=== PATIENT | male | born 1985 | race Caucasian/White ===

== ENCOUNTER 2023-03-29 13:30 | Outpatient (AMB) | payer OTHER, SELFPAY ==
--- NOTE | 2023-03-29 13:31 | MHC.PC.OV ---
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 Allergies No Known Allergies Allergy (Verified 03/29/23 13:36) Medication List - Last Reconciled 03/29/23 by Tony Duarte MD No Known Home Meds Tobacco use date assessed: 03/29/23 Dental Screening Dental Screen Date: 03/29/23 Did you have a dental visit in the last 12 months?: Yes Did you have a dental problem in the last 6 months where you did not have access to dental care?: Yes Was dental information given to patient?: 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 Family history of diabetes and mother Requesting labs which I have ordered for him to be done fasting. Patient offer no other complaints. [facility] [place] Social History Housing: Apartment Patient Tobacco Use Status: Never used Tobacco e-Cigarette/Vaping Use: Never Used service: Yes Current occupational status: employed Cognitive needs: No Hearing needs: No Vision needs: No Questionnaire PHQ-9 Over the last 2 weeks, how often have you been bothered by any of the following problems? 1. Little interest or pleasure in doing things: not at all 2. Feeling down, depressed, or hopeless: not at all 3. Trouble falling or staying asleep, or sleeping too much: not at all 4. Feeling tired or having little energy: not at all 5. Poor appetite or overeating: not at all 6. Feeling bad about yourself - or that you are a failure or have let yourself or your family down: not at all 7. Trouble concentrating on things, such as reading the newspaper or watching television: not at all 8. Moving or speaking so slowly that other people could have noticed. Or the opposite - being so fidgety or restless that you have been moving around a lot more than usual: not at all 9. Thoughts that you would be better off or of hurting yourself in some way: not at all Total score: 0 Source: Developed by Drs. Fabio Rosenbaum, Teresa Braswell, Jm Clifford and colleagues, with an educational rohith from [employer]. Thrive Questionnaire Date Thrive assessed: 03/29/23 I am a: Patient What is your living situation today?: I have a steady place to live Within the past 12 months, did the food you bought not last and you didn't have the money to get more?: Never true Within the past 12 months, did you worry whether your food would run out before you got money to buy more?: Never true Do you have trouble paying for medicines?: No Do you have trouble getting transportation to medical appointments?: No Do you have trouble paying your heating and electricity bill?: No Do you have trouble taking care of your child, family member or friend?: No Do you have trouble with day-to-day activities such as bathing, preparing meals, shopping, managing finances, etc.?: No Are you currently unemployed and looking for a job?: No Are you interested in more education?: No AUDIT C Alcohol Use Questionnaire (AUDIT-C) 1. How often do you have a drink containing alcohol?: Never Total Score: 0 DHARA-7 AMB Questionnaire DHARA-7 Date DHARA - 7 assessed: 03/29/23 Feeling nervous, anxious, or on edge: 0 = Not at all Not being able to stop or control worryin = Not at all Worrying too much about different things: 0 = Not at all Trouble relaxin = Not at all Being so restless that it is hard to sit still: 0 = Not at all Becoming easily annoyed or irritable: 0 = Not at all Feeling afraid as if something awful might happen: 0 = Not at all Total DHARA-7 score (0-4 normal; 5-9 mild; 10-14 moderate; 15-21 severe): 0 Source: Developed by Drs. Fabio Rosenbaum, Jm Harris and colleagues, with an educational rohith from [employer]. Review of Systems Const Denies chills, Denies fever(s) and Denies headache(s) Eyes Denies blurry vision ENT Denies headache(s), Denies nasal discharge, Denies nasal obstruction, Denies odynophagia and Denies sinus pain Card Denies chest pain at rest and Denies chest pain with activity Resp Denies cough and Denies hemoptysis GI Denies diarrhea, Denies odynophagia, Denies vomiting and Denies hematemesis Reports as per HPI Musc Denies abnormal gait Skin/Breast Reports as per HPI Neuro Denies Neuro-related abnormal movements, Denies Abnormal speech present, Denies abnormal gait, Denies headache(s) and Denies Sensory deficit (Neuro) Psych Denies mood swings and Denies paranoia Endo Reports as per HPI Basil/Lymph Reports as per HPI Aller/Immun Reports as per HPI Physical exam (Primary Care) Vital Signs: Last Vital Signs Pulse 68 03/29/23 13:33 BP 120/70 03/29/23 13:33 Pulse Ox 98 03/29/23 13:33 Oxygen Delivery Method Room Air 03/29/23 13:33 BMI result Body Mass Index 29.2 Tobacco/Smoking Status: Tobacco use Status Tobacco use date assessed 03/29/23 03/29/23 13:37 Patient Tobacco Use Status Never used Tobacco 03/29/23 13:37 e-Cigarette/Vaping Use Never Used 03/29/23 13:37 PHQ-9: PHQ-9 Score PHQ-9: Total score 0 03/29/23 13:37 Thrive Assessment: Date of Thrive Assessment Date Thrive assessed 03/29/23 03/29/23 13:37 Const General: cooperative, comfortable and no acute distress Orientation/consciousness: patient oriented x3 HENMT Head: Yes normocephalic and Yes atraumatic Eyes General: appearance normal, both eyes and all related structures Pupils: Equal, round and reactive pupils present EOM: EOMs intact bilaterally Neck Neck: Yes supple and No lymphadenopathy Thyroid: Thyroid normal Lymphatic: no lymphadenopathy noted Resp Effort & Inspection: normal respiratory effort and able to speak in complete sentences Auscultation: clear to auscultation bilaterally Cardio Heart sounds: S1 normal heart sound present and S2 normal heart sound present GI Palpation (GI): Soft to palpation and nontender Auscultation: normal bowel sounds General: Yes no CVA tenderness Back/Spine/Pelvis Back: no CVA tenderness Skin General skin exam: elasticity normal and turgor normal Neuro General: patient oriented x3 and gait normal Cranial nerves: Yes Equal, round and reactive pupils present Speech: No Abnormal speech present Sensory Exam: No Sensory deficit (Neuro) Coordination: tandem gait normal and Romberg test negative Extrem General: Yes normal exam except as noted and No edema Assessment and Plan Assessment & Plan (1) Encounter for general adult medical examination with abnormal findings: Code(s): Z00.01 - Encounter for general adult medical examination with abnormal findings (2) Erectile dysfunction: Code(s): N52.9 - Male erectile dysfunction, unspecified (3) Family history of diabetes mellitus: Code(s): Z83.3 - Family history of diabetes mellitus Plan New patient physical exam and establish care Patient moved from it denies 6 month ago He says that he was seeing a urologist over there for a tell dysfunction, and would like to have a referral to see a urologist again. Family history of diabetes and mother Requesting labs which I have ordered for him to be done fasting. Patient offer no other complaints. Orders: Orders Comprehensive [place]. Panel Fast Today N52.9 - Male erectile dysfunction, unspecified, Z00.01 - Encounter for general adult medical examination with abnormal findings, Z83.3 - Family history of diabetes mellitus Lipid Panel Today N52.9 - Male erectile dysfunction, unspecified, Z00.01 - Encounter for general adult medical examination with abnormal findings, Z83.3 - Family history of diabetes mellitus Prostate Specific Antigen Today N52.9 - Male erectile dysfunction, unspecified, Z00.01 - Encounter for general adult medical examination with abnormal findings, Z83.3 - Family history of diabetes mellitus Complete Blood Count Auto Diff Today N52.9 - Male erectile dysfunction, unspecified, Z00.01 - Encounter for general adult medical examination with abnormal findings, Z83.3 - Family history of diabetes mellitus TSH reflex Free T4 Today N52.9 - Male erectile dysfunction, unspecified, Z00.01 - Encounter for general adult medical examination with abnormal findings, Z83.3 - Family history of diabetes mellitus Referrals Urology Referral N52.9 - Male erectile dysfunction, unspecified Coding Level of Care Code New Pt Prev Care 18-39yr(10626 Diagnoses Encounter for general adult medical examination with abnormal findings Z00.01 Erectile dysfunction N52.9 Family history of diabetes mellitus Z83.3
[2023-03-29 13:33] VITALS: BP 120/70; PULSE 68; O2SAT 98; BMI 29.2
== END 2023-03-29 13:47 | disposition home or self-care (01) ==
PROVIDERS: Visit Provider Internal Medicine
DX: Z00.01 Encounter for general adult medical examination with abnormal findings (principal); N52.9 Male erectile dysfunction, unspecified; Z83.3 Family history of diabetes mellitus
CPT/HCPCS: 99385

== ENCOUNTER 2023-04-06 06:32 | Outpatient (REF) | payer OTHER, SELFPAY ==
[2023-04-06 11:25] LABS: MANUAL DIFF FLAG NO
[2023-04-06 12:00] LABS: Basophils Absolute Auto 0.1 X10*3/uL (0.0-0.2); Eosinophils Absolute Auto 0.2 X10*3/uL (0.0-0.4); Eosinophils Percent Auto 2.1 % (0-4); Hematocrit 44.3 % (42.0-52.0); Hemoglobin 14.9 g/dl (14.0-18.0); Imm Gran Abs Auto 0.12 X10*3/uL (0.00-0.03); Imm Gran Pct Auto 1.6 % (0.0-0.4); Lymphocytes Absolute Auto 2.5 X10*3/uL (1.2-4.9); Lymphocytes Percent Auto 32.9 % (20-40); Mean Corpuscular HGB Conc 33.6 g/dl (31.0-36.0); Mean Corpuscular Volume 89.1 fL (80.0-98.0); Mean Platelet Volume 9.4 fL (9.4-12.4); Monocytes Absolute Auto 0.5 X10*3/uL (0.1-1.2); Monocytes Percent Auto 6.7 % (2-11); Neutrophils Absolute Auto 4.3 x10*3/uL (2.0-8.3); Neutrophils Percent Auto 55.7 % (45-73); Platelet Count 314 X10*3/uL (160-400); Red Blood Count 4.97 X10*6/uL (4.60-5.80); Red Cell Distribution Width 11.9 % (11.0-16.0); White Blood Count 7.7 X10*3/uL (4.8-10.8)
[2023-04-06 12:30] LABS: Alanine Aminotransferase 50 U/L (0-40); Albumin Level 4.5 g/dL (3.5-5.0); Alkaline Phosphatase 60 U/L (39-117); Anion Gap 13 (12-20); Aspartate Amino Transferase 27 U/L (5-37); Bilirubin Total 0.9 mg/dL (0.0-1.0); Blood Urea Nitrogen 16 mg/dL (9-16); Calcium 9.7 mg/dL (8.4-10.2); Carbon Dioxide 27 mmol/L (22-29); Chloride 106 mmol/L (96-108); Cholesterol 208 mg/dL; Estimated Glomerular Filt Rate > 60; Glucose Fasting 98 mg/dL (60-99); HDL Cholesterol 43 mg/dL; LDL Cholesterol Calculated 136 mg/dl; Potassium 4.7 mmol/L (3.3-5.1); Sodium 141 mmol/L (135-145); Total Protein 7.2 g/dL (6.5-8.0); Triglycerides 147 mg/dL
[2023-04-06 12:52] LABS: Prostate Specific Antigen 0.75 ng/mL (<0.05-4.0)
== END 2023-04-06 06:33 | disposition home or self-care (01) ==
LOC: HO.HMGCLDS 06:32
PROVIDERS: PCP Internal Medicine; Visit Provider Internal Medicine
DX: Z00.01 Encounter for general adult medical examination with abnormal findings (principal); Z12.5 Encounter for screening for malignant neoplasm of prostate; N52.9 Male erectile dysfunction, unspecified; Z83.3 Family history of diabetes mellitus
CPT/HCPCS: 36415; 80053; 80061; 84153; 84443; 85025

== ENCOUNTER 2023-05-24 14:51 | Outpatient (AMB) | payer OTHER, SELFPAY ==
--- NOTE | 2023-05-24 14:52 | A.OFFVIS_ITS ---
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 Duarte. He presents to the office today as a new patient for erectile dysfunction. When asked he reports to be doing and feeling well. He reports over the last 3 or so years noting himself to have issues with maintaining his erections. 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 He reports previously having a workup with imaging of his penis and being told everything was within normal limits. He denies any issues with his urination. He reports to be happy with current voiding parameters. He reports utilizing Viagra 100 mg on demand and reports this to be working somewhat well for him and is requesting a refill. In office urinalysis results reviewed with the patient today. He otherwise offers no other issues or concerns at this time. [facility] Social History Housing: Apartment Patient Tobacco Use Status: Never used Tobacco e-Cigarette/Vaping Use: Never Used service: Yes Current occupational status: employed Cognitive needs: No Hearing needs: No Vision needs: No Review of Systems Const All systems reviewed & are unremarkable except as noted in HPI and below Physical Exam Const General: cooperative, healthy appearing, comfortable, no acute distress, well developed, alert and awake Orientation/consciousness: patient oriented x3 Limitations: no limitations HEENT Head: Yes normal to inspection, Yes normocephalic and Yes atraumatic Ears: hearing grossly normal bilaterally Eyes General: appearance normal, both eyes and all related structures Neck Neck: Yes normal visual inspection and Yes trachea midline Chest Chest palpation & inspection: normal inspection of the chest Resp Effort & Inspection: normal respiratory effort and able to speak in complete sentences Cardio Rate: regular rate GI Inspection: Yes normal to inspection General: Yes no CVA tenderness Back/Spine/Pelvis Back: no CVA tenderness Skin General skin exam: no rashes or lesions noted Neuro General: patient oriented x3 Extrem General: Yes normal to inspection Psych Appearance: grossly normal and well kempt Mental Status: mental status grossly normal Speech and movement: Normal speech and movement present and Clear speech present Affect: normal affect Attitude: cooperative Thought process: Normal thought process present Thought content: Normal thought content present Insight: Good insight present (Psych) Judgement: Good judgement present (Psych) Results AMB Urinalysis, Automated UA Leukoctes 0 Sai/uL Last Edit by [employer] on 05/24/23 15:12 UA Nitrite Negative Last Edit by [employer] on 05/24/23 15:12 UA Urobilinogen 0.2 mg/dL Last Edit by [employer] on 05/24/23 15:12 UA Protein 0 mg/dL Last Edit by [employer] on 05/24/23 15:12 UA pH 7.0 Last Edit by [employer] on 05/24/23 15:12 UA Blood 0 [place]/uL Last Edit by [employer] on 05/24/23 15:12 UA Specific [place] 1.015 Last Edit by [employer] on 05/24/23 15:12 UA Ketone Negative Last Edit by [employer] on 05/24/23 15:12 UA Bilirubin 0 mg/dL Last Edit by [employer] on 05/24/23 15:12 UA Glucose 0 mg/dL Last Edit by [employer] on 05/24/23 15:12 Results Reviewed Results Reviewed: Laboratory Last Values Urine pH (Auto) 7.0 05/24/23 15:01 Specific [place] (Auto) 1.015 05/24/23 15:01 Urine Protein (Auto) 0 mg/dL 05/24/23 15:01 Glucose (UA)(Auto) 0 mg/dL 05/24/23 15:01 Urine Ketones (Auto) Negative 05/24/23 15:01 Urine Blood (Auto) 0 [place]/uL 05/24/23 15:01 Urine Nitrite (Auto) Negative 05/24/23 15:01 Urine Bilirubin (Auto) 0 mg/dL 05/24/23 15:01 Urine Urobilinogen (Auto) 0.2 mg/dL 05/24/23 15:01 Leukocyte Esterase (Auto) 0 Sai/uL 05/24/23 15:01 Assessment & Plan Assessment & Plan (1) Erectile dysfunction: Code(s): N52.9 - Male erectile dysfunction, unspecified Plan In office urinalysis results reviewed with the patient today. Discussed obtaining labs; FSH, testosterone, albumin, SHBG, estradiol, LH, and prolactin for further assessment and evaluation He denies any bothersome urinary issues at this time. He is happy with his current voiding parameters. Discussed lifestyle modifications to assist with ED. Refill provided on Viagra Follow-up in 1 month with labs to be completed prior; or sooner with any issues, concerns, and or questions. Orders: Orders AMB Urinalysis Automated Today Z13.9 - Encounter for screening, unspecified Follicle Stimulating Hormone Today N52.9 - Male erectile dysfunction, u nspecified Testosterone, Free/Total Today N52.9 - Male erectile dysfunction, unspecified Albumin Level Today N52.9 - Male erectile dysfunction, unspecified Sex Hormone Binding Globulin Today N52.9 - Male erectile dysfunction, unspecified Estradiol Ultra Sensitive Today N52.9 - Male erectile dysfunction, unspecified Lutenizing Hormone Today N52.9 - Male erectile dysfunction, unspecified Prolactin Today N52.9 - Male erectile dysfunction, unspecified Medications: New sildenafil (Viagra) BIN [id number] [facility] Group [id number] 100 mg PO DAILY 30 days 30 tabs 4RF Patient Instructions: The patient had an opportunity to ask questions regarding the treatment plan. All questions were answered. Physical exam, labs, and imaging were discussed and reviewed in detail. As well as risks, benefits, and discussion of treatment choices. No major barriers to understanding were identified. The patient expressed understanding and agreement with the above treatment plan. The patient was made aware they should contact our office by phone for worsening of their current condition, the appearance of new symptoms, or with any questions or concerns. Compliance is encouraged with any medications and follow up testing that is ordered. It is a privilege to be allowed the opportunity to participate in? your urological care.? Again, if you have any questions or concerns If you have any questions or concerns please do not hesitate to contact me. The office is [phone]. This note is constructed using voice recognition software. While every effort has been made to ensure accuracy church history teacher errors may have been included. Yours sincerely, YESI Estrada Coding Level of Care Code New Pt Level 3 (86019) Diagnoses Erectile dysfunction N52.9
== END 2023-05-24 15:48 | disposition home or self-care (01) ==
PROVIDERS: PCP Internal Medicine; Visit Provider Nurse Practitioner Family
DX: N52.9 Male erectile dysfunction, unspecified (principal); Z13.9 Encounter for screening, unspecified
CPT/HCPCS: 99203

== ENCOUNTER → 2023-05-24 14:51 | Outpatient (BNVA) | payer OTHER, SELFPAY | PROVIDERS: PCP Internal Medicine; Visit Provider Nurse Practitioner Family | DX: N52.9 Male erectile dysfunction, unspecified (principal) | CPT/HCPCS: 81003 ==

== ENCOUNTER 2023-08-11 09:32 | Outpatient (REF) | payer OTHER, SELFPAY ==
[2023-08-11 12:11] LABS: Alanine Aminotransferase 33 U/L (0-40); Albumin Level 4.7 g/dL (3.5-5.0); Alkaline Phosphatase 58 U/L (39-117); Aspartate Amino Transferase 22 U/L (5-37); Bilirubin Direct 0.3 mg/dL (0.0-0.5); Bilirubin Total 0.9 mg/dL (0.0-1.0); Total Protein 7.6 g/dL (6.5-8.0)
[2023-08-12 14:28] LABS: Sex Hormone Binding Globulin 15 nmol/L (10-50)
[2023-08-13 07:09] LABS: Follicle Stimulating Hormone 4.1 mIU/mL (1.4-12.8); Lutenizing Hormone 5.1 mIU/mL (1.5-9.3); Prolactin 5.1 ng/mL (2.0-18.0)
[2023-08-16 16:14] LABS: Testosterone, Free 105.6 pg/mL (35.0-155.0); Testosterone, Total 440 ng/dL (250-1100)
[2023-08-17 21:09] LABS: Estradiol Ultra Sensitive 27 pg/mL (< OR = 29)
== END 2023-08-11 09:33 | disposition home or self-care (01) ==
LOC: HO.HMGCLDS 09:32
PROVIDERS: Absent Provider Nurse Practitioner Family; PCP Internal Medicine; Visit Provider Internal Medicine
DX: R79.89 Other specified abnormal findings of blood chemistry (principal); N52.9 Male erectile dysfunction, unspecified
CPT/HCPCS: 36415; 80076; 82670; 83001; 83002; 84146; 84270; 84402; 84403

== ENCOUNTER 2023-09-01 13:29 | Outpatient (AMB) | payer OTHER, SELFPAY ==
--- NOTE | 2023-09-01 14:00 | MHC.OFFVIS ---
Intake Intake Visit Reasons: Follow-up Labs Results Intake Note: Patient presents for follow up visit erectile dysfunction/labs (testosterone 440) (free testosterone 105.6) Urology Medications: sildenafil Blood Thinner: none Diabetic: no Systems Architect Required: No Accompanied by: Self / Same As Patient Allergies No Known Allergies Allergy (Verified 09/03/23 17:34) Medication List - Last Reconciled 09/03/23 by TESSA Estrada-ANA MARÍA sildenafil (Viagra) 100 mg PO DAILY 30 days tadalafil (Cialis) 5 mg PO DAILY 90 days HPI HPI Comments History of Present Illness Details Clifford is a very pleasant 37-year-old male patient of Dr. Duarte. He presents to the office today for follow-up of his erectile dysfunction. Of note, patient was seen approximately 3 months ago at which time labs were ordered for further assessment evaluation of erectile dysfunction. These results were reviewed with the patient today. Estradiol 08/19--27 FSH 08/19--4.1 LH 08/19--5.1 Prolactin 08/19--5.1 Total testosterone 08/19--440 Free testosterone 08/19--105.6 SHBG 08/19-- 15 PSA 08/19--0.8 When asked he reports to be doing and feeling well. He does report sexual desire and is able to obtain erections however maintaining erections can be difficult at times. He reports utilizing as needed Viagra as prescribed and finds this helpful. 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 He reports previously having a workup with imaging of his penis and being told everything was within normal limits. When asked he denies any signs and symptoms of sleep apnea. He denies any issues with his urination. He reports to be happy with current voiding parameters. In office urinalysis results reviewed with the patient today. He otherwise offers no other issues or concerns at this time. [facility] Social History Housing: Apartment Patient Tobacco Use Status: Never used Tobacco e-Cigarette/Vaping Use: Never Used service: Yes Current occupational status: employed Cognitive needs: No Hearing needs: No Vision needs: No Review of Systems Const All systems reviewed & are unremarkable except as noted in HPI and below Physical Exam Const General: cooperative, healthy appearing, comfortable, no acute distress, well developed, alert and awake Orientation/consciousness: patient oriented x3 Limitations: no limitations HEENT Head: Yes normal to inspection, Yes normocephalic and Yes atraumatic Ears: hearing grossly normal bilaterally Eyes General: appearance normal, both eyes and all related structures Neck Neck: Yes normal visual inspection and Yes trachea midline Chest Chest palpation & inspection: normal inspection of the chest Resp Effort & Inspection: normal respiratory effort and able to speak in complete sentences Cardio Rate: regular rate GI Inspection: Yes normal to inspection General: Yes no CVA tenderness Back/Spine/Pelvis Back: no CVA tenderness Skin General skin exam: no rashes or lesions noted Neuro General: patient oriented x3 Extrem General: Yes normal to inspection Psych Appearance: grossly normal and well kempt Mental Status: mental status grossly normal Speech and movement: Normal speech and movement present and Clear speech present Affect: normal affect Attitude: cooperative Thought process: Normal thought process present Thought content: Normal thought content present Insight: Good insight present (Psych) Judgement: Good judgement present (Psych) Results AMB Urinalysis, Automated UA Leukoctes 0 Sai/uL Last Edit by [employer] on 09/01/23 14:10 UA Nitrite Negative Last Edit by [employer] on 09/01/23 14:10 UA Urobilinogen 0.2 mg/dL Last Edit by [employer] on 09/01/23 14:10 UA Protein 0 mg/dL Last Edit by [employer] on 09/01/23 14:10 UA pH 6.0 Last Edit by [employer] on 09/01/23 14:10 UA Blood 0 [place]/uL Last Edit by [employer] on 09/01/23 14:10 UA Specific [place] 1.025 Last Edit by [employer] on 09/01/23 14:10 UA Ketone Negative Last Edit by [employer] on 09/01/23 14:10 UA Bilirubin 0 mg/dL Last Edit by [employer] on 09/01/23 14:10 UA Glucose 0 mg/dL Last Edit by [employer] on 09/01/23 14:10 Results Reviewed Results Reviewed: Laboratory Last Values Urine pH (Auto) 6.0 09/01/23 14:09 Specific [place] (Auto) 1.025 09/01/23 14:09 Urine Protein (Auto) 0 mg/dL 09/01/23 14:09 Glucose (UA)(Auto) 0 mg/dL 09/01/23 14:09 Urine Ketones (Auto) Negative 09/01/23 14:09 Urine Blood (Auto) 0 [place]/uL 09/01/23 14:09 Urine Nitrite (Auto) Negative 09/01/23 14:09 Urine Bilirubin (Auto) 0 mg/dL 09/01/23 14:09 Urine Urobilinogen (Auto) 0.2 mg/dL 09/01/23 14:09 Leukocyte Esterase (Auto) 0 Sai/uL 09/01/23 14:09 Assessment & Plan Assessment & Plan (1) Erectile dysfunction: Code(s): N52.9 - Male erectile dysfunction, unspecified Plan In office urinalysis results reviewed with the patient today. Recent labs reviewed with the patient today; as noted above. He denies any bothersome urinary issues at this time. He is happy with his current voiding parameters. Discussed at length lifestyle modifications to assist with ED. Start Cialis 5 mg daily as discussed Continue as needed Viagra as prescribed Follow-up in 3 months; or sooner with any issues, concerns, and or questions. Orders: Orders AMB Urinalysis Automated 09/01/23 Z13.9 - Encounter for screening, unspecified Medications: New tadalafil (Cialis) [id number] [facility] [id number] Member [id number] 5 mg PO DAILY 90 days 90 tabs 1RF Refilled sildenafil (Viagra) BIN [id number] [facility] Group [id number] 100 mg PO DAILY 30 days 30 tabs 4RF Patient Instructions: The patient had an opportunity to ask questions regarding the treatment plan. All questions were answered. Physical exam, labs, and imaging were discussed and reviewed in detail. As well as risks, benefits, and discussion of treatment choices. No major barriers to understanding were identified. The patient expressed understanding and agreement with the above treatment plan. The patient was made aware they should contact our office by phone for worsening of their current condition, the appearance of new symptoms, or with any questions or concerns. Compliance is encouraged with any medications and follow up testing that is ordered. It is a privilege to be allowed the opportunity to participate in? your urological care.? Again, if you have any questions or concerns If you have any questions or concerns please do not hesitate to contact me. The office is [phone]. This note is constructed using voice recognition software. While every effort has been made to ensure accuracy master fire control technician errors may have been included. Yours sincerely, YESI Estrada Coding Level of Care Code Est Pt Level 4 (05489) Diagnoses Erectile dysfunction N52.9
== END 2023-09-01 14:48 | disposition home or self-care (01) ==
PROVIDERS: PCP Internal Medicine; Visit Provider Nurse Practitioner Family
DX: N52.9 Male erectile dysfunction, unspecified (principal)
CPT/HCPCS: 99214

== ENCOUNTER → 2023-09-01 13:29 | Outpatient (BNVA) | payer OTHER, SELFPAY | PROVIDERS: PCP Internal Medicine; Visit Provider Nurse Practitioner Family | DX: N52.9 Male erectile dysfunction, unspecified (principal) | CPT/HCPCS: 81003; 99212 ==

== ENCOUNTER 2023-10-31 10:38 | Outpatient (AMB) | payer OTHER, SELFPAY ==
--- NOTE | 2023-10-31 11:49 | MHC.OFFWIV ---
Intake Vital Signs 10/31/23 11:54 Height 6 ft Weight 223 lb BMI 30.2 BP 120/80 Blood Pressure Location Lt brachial Position Sitting Pulse 61 Pulse Source Pulse Oximeter Temp 97.3 F Temp Source Temporal Artery Scan Pulse Oximetry (%) 96 Intake Visit Reasons: EP sinus pain congestion masked in lobby Intake Note: pt is here today for sinus pain congestion started Patient Tobacco Use Status: Never used Tobacco Allergies No Known Allergies Allergy (Verified 10/31/23 12:34) Medication List - Last Reconciled 10/31/23 by TESSA Dowling sildenafil (Viagra) 100 mg PO DAILY 30 days tadalafil (Cialis) 5 mg PO DAILY 90 days Do you need a note to return to daycare/school/sports/work: Yes HPI HPI Comments History of Present Illness Details Patient is a 38-year-old male in for sick visit. He is an active member of the . He has no significant past medical history. States that for the past couple of days he has developed symptoms of sore throat, headache, cough. Patient states that he took Mucinex in the morning with good effect. Denies shortness of breath, chest pain, numbness, nausea, vomiting, diarrhea. [facility] Social History Housing: Apartment Patient Tobacco Use Status: Never used Tobacco e-Cigarette/Vaping Use: Never Used service: Yes Current occupational status: employed Cognitive needs: No Hearing needs: No Vision needs: No Review of Systems Const Details: Constitutional : No Weight loss, No Fever, No Chills, No Fatigue, No Malaise ENT/Mouth : Admits sore throat, Admits nasal congestion. Eyes: No Eye Pain, No Swelling, No Redness Cardiovascular : No Chest Pain, No SOB, No Dyspnea on Exertion, No Orthopnea, No Edema, No Palpitations Respiratory : Admits Cough, No Sputum, No Wheezing Gastrointestinal : No Nausea, No Vomiting, No Diarrhea, No Constipation, No abdominal Pain, No Hematochezia, No Melena Genitourinary : No Dysuria, No Urinary Frequency, No Hematuria, Musculoskeletal : No joint pain, No Myalgias, No Joint Swelling Skin : No Skin Lesions, No rash Neuro : No Weakness, No Numbness, No Dizziness, No Headache Psych : No Anxiety/Panic, No Depression Heme/Lymph: No Bruising, No Bleeding,No Lymphadenopathy Endocrine : No Polyuria, No Polydipsia All other systems reviewed and are negative Physical Exam Vital Signs: Last Vital Signs Temp 97.3 F 10/31/23 11:54 Pulse 61 10/31/23 11:54 BP 120/80 10/31/23 11:54 Pulse Ox 96 10/31/23 11:54 BMI result Body Mass Index 30.2 Vital signs reviewed stable Const Other: Appearance: Alert.? Oriented X3.? No acute distress.? Head: Normocephalic, atraumatic. Eyes: Pupils equal, round and reactive to light.? ENT: Pharynx cobblestoned,+ post nasal drip. TM intact and pearly honeycutt. Neck: Normal inspection.? Neck supple.? CVS: Normal heart rate and rhythm.? Pulses normal.? Respiratory: No respiratory distress.? Breath sounds normal.? Neuro: Oriented X 3.? No motor deficit.? No sensory deficit. CN 2-12 intact Assessment & Plan Assessment & Plan (1) Upper respiratory infection: Comment: Patient had swab in office. Likely viral respiratory illness. Patient states he got relief with Mucinex, been educated that he continue to take that as directed on the bottle. He can also use [id number] Tylenol and Motrin for relief. Patient will be given fluticasone for postnasal drip which is likely exacerbating his sore throat. Code(s): J06.9 - Acute upper respiratory infection, unspecified Qualifiers: URI type: unspecified URI Qualified Code(s): J06.9 - Acute upper respiratory infection, unspecified Plan: Take your medications as prescribed. If you were prescribed antibiotics today, it is important that you take your medication to their entirety, do not skip any doses, do not finish them early. Follow-up with your primary care provider this week. Return to the emergency department with new or worsening symptoms. Such as fevers, chills, chest pain, shortness of breath, nausea, vomiting, dizziness, headache, vision changes, lethargy In case of emergency call 911 Plan Follow-up with PCP. Orders: Orders SARS-CoV2/FLU/RSV 10/31/23 J06.9 - Acute upper respiratory infection, unspecified Medications: New fluticasone propionate 50 mcg/actuation (Allergy Relief (fluticasone)) administer into each nostril 2 sprays intranasal DAILY 16 grams 0RF Coding Level of Care Code Est Pt Level 3 (46451) Diagnoses Upper respiratory tract infection, unspecified type J06.9 URI type: unspecified URI
[2023-10-31 11:54] VITALS: BP 120/80; PULSE 61; TEMP 36.3; O2SAT 96; BMI 30.2
== END 2023-10-31 13:46 | disposition home or self-care (01) ==
PROVIDERS: PCP Internal Medicine; Visit Provider Nurse Practitioner Primary Care
DX: J06.9 Acute upper respiratory infection, unspecified (principal)
CPT/HCPCS: 99213

== ENCOUNTER 2023-10-31 14:03 | Outpatient (REF) | payer OTHER, SELFPAY ==
[2023-10-31 15:10] LABS: Influenza A PCR NEGATIVE (Negative); Influenza B PCR NEGATIVE (Negative); Resp Syncy Virus RNA Qual PCR NEGATIVE (Negative); SARS COV2 PCR INHOUSE NEGATIVE (Negative)
== END 2023-10-31 14:04 | disposition home or self-care (01) ==
LOC: HO.HMGCLNP 14:03
PROVIDERS: Visit Provider Nurse Practitioner Primary Care
DX: Z11.52 Encounter for screening for COVID-19 (principal); Z20.822 Contact with and (suspected) exposure to COVID-19; J06.9 Acute upper respiratory infection, unspecified
CPT/HCPCS: 0241U

== ENCOUNTER 2023-12-01 13:53 | Outpatient (AMB) | payer OTHER, SELFPAY ==
--- NOTE | 2023-12-01 13:58 | MHC.OFFVIS ---
Intake Intake Visit Reasons: 3m follow up Intake Note: Patient presents for follow up visit erectile dysfunction Urology Medications: sildenafil, tadalafil Blood Thinner: none Diabetic: no Chief Science Officer Required: No Accompanied by: Self / Same As Patient Allergies No Known Allergies Allergy (Verified 12/01/23 14:28) Medication List - Last Reconciled 12/01/23 by JANNETTE EstradaP- fluticasone propionate 50 mcg/actuation (Allergy Relief (fluticasone)) 2 sprays intranasal DAILY sildenafil (Viagra) 100 mg PO DAILY 30 days tadalafil (Cialis) 5 mg PO DAILY 90 days HPI HPI Comments History of Present Illness Details Clifford is a very pleasant 38 year-old male patient of Dr. Durate. He presents to the office today for follow-up of his erectile dysfunction. When asked patient reports to be doing and feeling well. He reports adequate erections with 5 mg of Cialis daily in p.r.n. dosing of Viagra as needed prior to sexual activity. He currently denies any bothersome urinary issues or concerns. Previous workup has included hypogonadal labs which are noted and trended below: Estradiol 08/19--27 FSH 08/19--4.1 LH 08/19--5.1 Prolactin 08/19--5.1 Total testosterone 08/19--440 Free testosterone 08/19--105.6 SHBG 08/19-- 15 PSA 08/19--0.8 He has a history of penile Doppler workup with previous urologist and being told everything was within normal. When asked he denies any signs and symptoms of sleep apnea. He reports to be happy with current voiding parameters. In office urinalysis results reviewed with the patient today. He otherwise offers no other issues or concerns at this time. [facility] Social History Housing: Apartment Patient Tobacco Use Status: Never used Tobacco e-Cigarette/Vaping Use: Never Used service: Yes Current occupational status: employed Cognitive needs: No Hearing needs: No Vision needs: No Review of Systems Const All systems reviewed & are unremarkable except as noted in HPI and below Physical Exam Const General: cooperative, healthy appearing, comfortable, no acute distress, well developed, alert and awake Orientation/consciousness: patient oriented x3 Limitations: no limitations HEENT Head: Yes normal to inspection, Yes normocephalic and Yes atraumatic Ears: hearing grossly normal bilaterally Eyes General: appearance normal, both eyes and all related structures Neck Neck: Yes normal visual inspection and Yes trachea midline Chest Chest palpation & inspection: normal inspection of the chest Resp Effort & Inspection: normal respiratory effort and able to speak in complete sentences Cardio Rate: regular rate GI Inspection: Yes normal to inspection General: Yes no CVA tenderness Back/Spine/Pelvis Back: no CVA tenderness Skin General skin exam: no rashes or lesions noted Neuro General: patient oriented x3 Extrem General: Yes normal to inspection Psych Appearance: grossly normal and well kempt Mental Status: mental status grossly normal Speech and movement: Normal speech and movement present and Clear speech present Affect: normal affect Attitude: cooperative Thought process: Normal thought process present Thought content: Normal thought content present Insight: Good insight present (Psych) Judgement: Good judgement present (Psych) Results AMB Urinalysis, Automated UA Leukoctes 0 Sai/uL Last Edit by Likeability on 12/01/23 14:13 UA Nitrite Negative Last Edit by Likeability on 12/01/23 14:13 UA Urobilinogen 0.2 mg/dL Last Edit by Likeability on 12/01/23 14:13 UA Protein 15 mg/dL Last Edit by Likeability on 12/01/23 14:13 UA pH 5.5 Last Edit by Likeability on 12/01/23 14:13 UA Blood 0 [place]/uL Last Edit by Likeability on 12/01/23 14:13 UA Specific [place] 1.025 Last Edit by Likeability on 12/01/23 14:13 UA Ketone Negative Last Edit by Likeability on 12/01/23 14:13 UA Bilirubin 0 mg/dL Last Edit by Likeability on 12/01/23 14:13 UA Glucose 0 mg/dL Last Edit by Likeability on 12/01/23 14:13 Results Reviewed Results Reviewed: Laboratory Last Values Urine pH (Auto) 5.5 12/01/23 14:11 Specific [place] (Auto) 1.025 12/01/23 14:11 Urine Protein (Auto) 15 mg/dL 12/01/23 14:11 Glucose (UA)(Auto) 0 mg/dL 12/01/23 14:11 Urine Ketones (Auto) Negative 12/01/23 14:11 Urine Blood (Auto) 0 [place]/uL 12/01/23 14:11 Urine Nitrite (Auto) Negative 12/01/23 14:11 Urine Bilirubin (Auto) 0 mg/dL 12/01/23 14:11 Urine Urobilinogen (Auto) 0.2 mg/dL 12/01/23 14:11 Leukocyte Esterase (Auto) 0 Sai/uL 12/01/23 14:11 Assessment & Plan Assessment & Plan (1) Erectile dysfunction: Code(s): N52.9 - Male erectile dysfunction, unspecified Plan In office urinalysis results reviewed with the patient today. He denies any bothersome urinary issues at this time. He is happy with his current voiding parameters. Discussed at length lifestyle modifications to assist with ED. Continue 5mg Cialis daily; refill provided Continue as needed Viagra as prescribed; refill provided. Follow-up in 6 months; or sooner with any issues, concerns, and or questions. Orders: Orders AMB Urinalysis Automated Today Z13.9 - Encounter for screening, unspecified Medications: Refilled sildenafil (Viagra) BIN [id number] [facility] Group [id number] 100 mg PO DAILY 30 tabs 4RF 30 days tadalafil (Cialis) [id number] [facility] [id number] Member [id number] 5 mg PO DAILY 90 tabs 3RF 90 days Patient Instructions: The patient had an opportunity to ask questions regarding the treatment plan. All questions were answered. Physical exam, labs, and imaging were discussed and reviewed in detail. As well as risks, benefits, and discussion of treatment choices. No major barriers to understanding were identified. The patient expressed understanding and agreement with the above treatment plan. The patient was made aware they should contact our office by phone for worsening of their current condition, the appearance of new symptoms, or with any questions or concerns. Compliance is encouraged with any medications and follow up testing that is ordered. It is a privilege to be allowed the opportunity to participate in? your urological care.? Again, if you have any questions or concerns If you have any questions or concerns please do not hesitate to contact me. The office is [phone]. This note is constructed using voice recognition software. While every effort has been made to ensure accuracy registered diet technician errors may have been included. Yours sincerely, YESI Estrada Coding Level of Care Code Est Pt Level 3 (13798) Diagnoses Erectile dysfunction N52.9
== END 2023-12-01 14:19 | disposition home or self-care (01) ==
PROVIDERS: PCP Internal Medicine; Referring Provider Internal Medicine; Visit Provider Nurse Practitioner Family
DX: N52.9 Male erectile dysfunction, unspecified (principal); Z13.9 Encounter for screening, unspecified
CPT/HCPCS: 99213

== ENCOUNTER → 2023-12-01 13:53 | Outpatient (BNVA) | payer OTHER, SELFPAY | PROVIDERS: PCP Internal Medicine; Visit Provider Nurse Practitioner Family | DX: N52.9 Male erectile dysfunction, unspecified (principal); Z79.899 Other long term (current) drug therapy | CPT/HCPCS: 81003; 99212 ==

== ENCOUNTER 2024-03-06 13:01 | Outpatient (AMB) | payer OTHER, SELFPAY ==
--- NOTE | 2024-03-06 13:08 | A.OFFPC_ITS ---
Vital Signs 3 03/06/24 13:11 Height 6 ft Weight 212 lb 4 oz BMI 28.8 BP 124/80 Blood Pressure Location Rt brachial Position Sitting Pulse 75 Pulse Oximetry (%) 98 Oxygen Delivery Method Room Air Intake Visit Reasons: Rash RT leg Allergies No Known Allergies Allergy (Verified 03/06/24 13:13) Medication List - Last Reconciled 03/06/24 by Tony Duarte MD sildenafil (Viagra) 100 mg PO DAILY 30 days tadalafil (Cialis) 5 mg PO DAILY 90 days Tobacco use date assessed: 03/06/24 Dental Screening Dental Screen Date: 03/06/24 Did you have a dental visit in the last 12 months?: Yes Did you have a dental problem in the last 6 months where you did not have access to dental care?: No Was dental information given to patient?: Patient has dentist HPI Rash RT leg 2 HPI0 Details Patient is a 38-year-old gentleman came today to be evaluated for rash in the groin area for the past 1 month Patient says that the rash is pruritic at times and it has not getting better On examination patient has developed tinea corporis Treating the rash with Lotrisone cream He has appointment for physical exam next month we will re-evaluate the rash at that time. [facility] Social History Housing: Apartment Patient Tobacco Use Status: Never used Tobacco e-Cigarette/Vaping Use: Never Used service: Yes Current occupational status: employed Cognitive needs: No Hearing needs: No Vision needs: No Questionnaire Thrive Questionnaire Date Thrive assessed: 03/29/23 AUDIT C Alcohol Use Questionnaire (AUDIT-C) 1. How often do you have a drink containing alcohol?: Never 3. How often do you have six or more drinks on one occasion?: Never Total Score: 0 Score Reviewed/Action Taken: Yes DHARA-7 AMB Questionnaire DHARA-7 Date DHARA - 7 assessed: 03/29/23 Source: Developed by Drs. Fabio Rosenbaum, Teresa Braswell, Jm Clifford and colleagues, with an educational rohith from [employer]. Review of Systems Const All systems reviewed & are unremarkable except as noted in HPI and below Physical exam (Primary Care) Vital Signs: Last Vital Signs Pulse 75 03/06/24 13:11 BP 124/80 03/06/24 13:11 Pulse Ox 98 03/06/24 13:11 Oxygen Delivery Method Room Air 03/06/24 13:11 BMI result Body Mass Index 28.8 Tobacco/Smoking Status: Tobacco use Status Tobacco use date assessed 03/06/24 03/06/24 13:14 Patient Tobacco Use Status Never used Tobacco 03/06/24 13:08 e-Cigarette/Vaping Use Never Used 03/06/24 13:08 Thrive Assessment: Date of Thrive Assessment Date Thrive assessed 03/29/23 03/06/24 13:08 Const General: no acute distress Orientation/consciousness: patient oriented x3 Eyes General: appearance normal, both eyes and all related structures Resp Effort & Inspection: normal respiratory effort and able to speak in complete sentences Skin Full body images: 2 1. Rash erythematous 2. Erythematous rash Neuro General: patient oriented x3 Psych Mental Status: mental status grossly normal Assessment and Plan Assessment & Plan (1) Rash of groin: Code(s): R21 - Rash and other nonspecific skin eruption Plan Patient is a 38-year-old gentleman came today to be evaluated for rash in the groin area for the past 1 month Patient says that the rash is pruritic at times and it has not getting better On examination patient has developed tinea corporis Treating the rash with Lotrisone cream He has appointment for physical exam next month we will re-evaluate the rash at that time. Medications: New 2 clotrimazole-betamethasone 1-0.05 % 1 appl topical ONCE 45 grams 0RF 30 days Coding Level of Care Code Est Pt Level 3 (03281) Diagnoses Rash of groin R21
[2024-03-06 13:11] VITALS: BP 124/80; PULSE 75; O2SAT 98; BMI 28.8
== END 2024-03-06 17:54 | disposition home or self-care (01) ==
PROVIDERS: PCP Internal Medicine; Visit Provider Internal Medicine
DX: R21 Rash and other nonspecific skin eruption (principal)
CPT/HCPCS: 99213

== ENCOUNTER 2024-05-07 14:22 | Outpatient (AMB) | payer OTHER, SELFPAY ==
--- NOTE | 2024-05-07 14:26 | MHC.PC.OV ---
Vital Signs 05/07/24 14:27 Height 6 ft Weight 217 lb 4 oz BMI 29.5 BP 120/80 Blood Pressure Location Lt brachial Position Sitting Pulse 62 Pulse Source Pulse Oximeter Pulse Oximetry (%) 96 Oxygen Delivery Method Room Air Intake Visit Reasons: PE Allergies No Known Allergies Allergy (Verified 03/06/24 13:13) Medication List - Last Reconciled 05/07/24 by Tony Duarte MD clotrimazole-betamethasone 1-0.05 % 1 appl topical ONCE 30 days sildenafil (Viagra) 100 mg PO DAILY 30 days tadalafil (Cialis) 5 mg PO DAILY 90 days Tobacco use date assessed: 03/06/24 Dental Screening Dental Screen Date: 03/06/24 HPI PE HPI Details Patient is a 38-year-old gentleman came in today for physical exam Patient have erectile dysfunction he is taking medication through Urology Last time seen was February of this year when he presented with tinea corporis and cream was prescribed Which is helping patient, he says that he forgets to put it on that is why rash sometimes reoccurs Requesting an x-ray of his back, 2021 patient injured his back playing with his kids And now have pain off and on which responds to NSAIDs Also chest x-ray is needed as he is complaining of recurrent dry cough Patient have served in [place] and was exposed to chemicals Lab order placed to be done fasting Patient is overweight with BMI of 29.5, need to lose weight [facility] Social History Housing: Apartment Patient Tobacco Use Status: Never used Tobacco e-Cigarette/Vaping Use: Never Used service: Yes Current occupational status: employed Cognitive needs: No Hearing needs: No Vision needs: No Questionnaire PHQ-9 Over the last 2 weeks, how often have you been bothered by any of the following problems? 1. Little interest or pleasure in doing things: not at all 2. Feeling down, depressed, or hopeless: not at all 3. Trouble falling or staying asleep, or sleeping too much: not at all 4. Feeling tired or having little energy: not at all 5. Poor appetite or overeating: not at all 6. Feeling bad about yourself - or that you are a failure or have let yourself or your family down: not at all 7. Trouble concentrating on things, such as reading the newspaper or watching television: not at all 8. Moving or speaking so slowly that other people could have noticed. Or the opposite - being so fidgety or restless that you have been moving around a lot more than usual: not at all 9. Thoughts that you would be better off or of hurting yourself in some way: not at all Total score: 0 Depression Screening Interpretation: Negative Depression Screening Done: Yes 79840 - PHQ-9 Billing: Yes Source: Developed by Drs. Fabio Rosenbaum, Teresa Braswell, Jm Clifford and colleagues, with an educational rohith from [employer]. Thrive Questionnaire Date Thrive assessed: 05/04/24 I am a: Patient What is your living situation today?: I have a steady place to live Within the past 12 months, did the food you bought not last and you didn't have the money to get more?: Never true Within the past 12 months, did you worry whether your food would run out before you got money to buy more?: Never true Do you have trouble paying for medicines?: No Do you have trouble getting transportation to medical appointments?: No Do you have trouble paying your heating and electricity bill?: No Do you have trouble taking care of your child, family member or friend?: No Do you have trouble with day-to-day activities such as bathing, preparing meals, shopping, managing finances, etc.?: No Are you currently unemployed and looking for a job?: No Are you interested in more education?: No Please select the resources that you would like help with: None Currently or been in a relationship where the following occur: No concerns reported THRIVE Score: 0 AUDIT C Alcohol Use Questionnaire (AUDIT-C) 1. How often do you have a drink containing alcohol?: Never Total Score: 0 DHARA-7 AMB Questionnaire DHARA-7 Date DHARA - 7 assessed: 03/29/23 Feeling nervous, anxious, or on edge: 0 = Not at all Not being able to stop or control worryin = Not at all Worrying too much about different things: 0 = Not at all Trouble relaxin = Not at all Being so restless that it is hard to sit still: 0 = Not at all Becoming easily annoyed or irritable: 0 = Not at all Feeling afraid as if something awful might happen: 0 = Not at all Total DHARA-7 score (0-4 normal; 5-9 mild; 10-14 moderate; 15-21 severe): 0 Source: Developed by Drs. Fabio Rosenbaum, Teresa Braswell, Jm Clifofrd and colleagues, with an educational rohith from [employer]. Review of Systems Const Denies chills, Denies fever(s) and Denies headache(s) Eyes Denies blurry vision ENT Denies headache(s), Denies nasal discharge, Denies nasal obstruction, Denies odynophagia and Denies sinus pain Card Denies chest pain at rest and Denies chest pain with activity Resp Denies cough and Denies hemoptysis GI Denies diarrhea, Denies odynophagia, Denies vomiting and Denies hematemesis Reports as per HPI Musc Denies abnormal gait Skin/Breast Reports as per HPI Neuro Denies Neuro-related abnormal movements, Denies Abnormal speech present, Denies abnormal gait, Denies headache(s) and Denies Sensory deficit (Neuro) Psych Denies mood swings and Denies paranoia Endo Reports as per HPI Basil/Lymph Reports as per HPI Aller/Immun Reports as per HPI Physical exam (Primary Care) Vital Signs: Last Vital Signs Pulse 62 05/07/24 14:27 BP 120/80 05/07/24 14:27 Pulse Ox 96 05/07/24 14:27 Oxygen Delivery Method Room Air 05/07/24 14:27 BMI result Body Mass Index 29.5 Tobacco/Smoking Status: Tobacco use Status Tobacco use date assessed 03/06/24 05/07/24 14:28 Patient Tobacco Use Status Never used Tobacco 05/07/24 14:28 e-Cigarette/Vaping Use Never Used 05/07/24 14:28 PHQ-9: PHQ-9 Score PHQ-9: Total score 0 05/07/24 14:28 Depression Screening Interpretation: Negative Thrive Assessment: Date of Thrive Assessment Date Thrive assessed 05/04/24 05/07/24 14:28 Currently or been in a relationship where the following occur: No concerns reported Const General: cooperative, comfortable and no acute distress Orientation/consciousness: patient oriented x3 HENMT Head: Yes normocephalic and Yes atraumatic Eyes General: appearance normal, both eyes and all related structures Pupils: Equal, round and reactive pupils present EOM: EOMs intact bilaterally Neck Neck: Yes supple and No lymphadenopathy Thyroid: Thyroid normal Lymphatic: no lymphadenopathy noted Resp Effort & Inspection: normal respiratory effort and able to speak in complete sentences Auscultation: clear to auscultation bilaterally Cardio Heart sounds: S1 normal heart sound present and S2 normal heart sound present GI Palpation (GI): Soft to palpation and nontender Auscultation: normal bowel sounds General: Yes no CVA tenderness Back/Spine/Pelvis Back: no CVA tenderness Skin General skin exam: elasticity normal and turgor normal Neuro General: patient oriented x3 and gait normal Cranial nerves: Yes Equal, round and reactive pupils present Speech: No Abnormal speech present Sensory Exam: No Sensory deficit (Neuro) Coordination: tandem gait normal and Romberg test negative Extrem General: Yes normal exam except as noted and No edema Assessment and Plan Assessment & Plan (1) Encounter for general adult medical examination with abnormal findings: Code(s): Z00.01 - Encounter for general adult medical examination with abnormal findings (2) Lower back pain: Code(s): M54.50 - Low back pain, unspecified Qualifiers: Back pain laterality: midline Chronicity: chronic Sciatica presence: without sciatica Qualified Code(s): M54.50 - Low back pain, unspecified; G89.29 - Other chronic pain (3) Recurrent dry cough: Code(s): R05.8 - Other specified cough (4) Overweight (BMI 25.0-29.9): Code(s): E66.3 - Overweight (5) Erectile dysfunction: Code(s): N52.9 - Male erectile dysfunction, unspecified Qualifiers: Erectile dysfunction type: due to other cause Qualified Code(s): N52.8 - Other male erectile dysfunction (6) Rash of groin: Code(s): R21 - Rash and other nonspecific skin eruption Plan Patient is a 38-year-old gentleman came in today for physical exam Patient have erectile dysfunction he is taking medication through Urology Last time seen was February of this year when he presented with tinea corporis and cream was prescribed Which is helping patient, he says that he forgets to put it on that is why rash sometimes reoccurs Requesting an x-ray of his back, 2021 patient injured his back playing with his kids And now have pain off and on which responds to NSAIDs Also chest x-ray is needed as he is complaining of recurrent dry cough Patient have served in [place] and was exposed to chemicals Lab order placed to be done fasting Patient is overweight with BMI of 29.5, need to lose weight Orders: Orders Complete Blood Count Auto Diff Today E66.3 - Overweight, N52.9 - Male erectile dysfunction, unspecified, R21 - Rash and other nonspecific skin eruption, Z00.01 - Encounter for general adult medical examination with abnormal findings Comprehensive [place]. Panel Fast Today E66.3 - Overweight, N52.9 - Male erectile dysfunction, unspecified, R21 - Rash and other nonspecific skin eruption, Z00.01 - Encounter for general adult medical examination with abnormal findings Lipid Panel Today E66.3 - Overweight, N52.9 - Male erectile dysfunction, unspecified, R21 - Rash and other nonspecific skin eruption, Z00.01 - Encounter for general adult medical examination with abnormal findings XR chest 2V Today R05.8 - Other specified cough TSH reflex Free T4 Today E66.3 - Overweight, N52.9 - Male erectile dysfunction, unspecified, R21 - Rash and other nonspecific skin eruption, Z00.01 - Encounter for general adult medical examination with abnormal findings XR lumbar spine 2-3V Today M54.50 - Low back pain, unspecified Coding Level of Care Code Est Pt Level 3 (84136) Est Pt Prev Care 40-64y(64559) Diagnoses Encounter for general adult medical examination with abnormal findings Z00.01 Chronic midline low back pain without sciatica M54.50; G89.29 Back pain laterality: midline Chronicity: chronic Sciatica presence: without sciatica Recurrent dry cough R05.8 Overweight (BMI 25.0-29.9) E66.3 Other male erectile dysfunction N52.8 Erectile dysfunction type: due to other cause Rash of groin R21
[2024-05-07 14:27] VITALS: BP 120/80; PULSE 62; O2SAT 96; BMI 29.5
== END 2024-05-07 14:50 | disposition home or self-care (01) ==
PROVIDERS: PCP Internal Medicine; Visit Provider Internal Medicine
DX: Z00.01 Encounter for general adult medical examination with abnormal findings (principal); M54.50 Low back pain, unspecified; G89.29 Other chronic pain; R05.8 Other specified cough; E66.3 Overweight; N52.8 Other male erectile dysfunction; R21 Rash and other nonspecific skin eruption
CPT/HCPCS: 99213; 99396

== ENCOUNTER 2024-05-09 06:01 | Outpatient (REF) | payer OTHER, SELFPAY ==
[2024-05-09 10:05] LABS: MANUAL DIFF FLAG NO
[2024-05-09 10:39] LABS: Alanine Aminotransferase 44 U/L (0-40); Albumin Level 4.3 g/dL (3.5-5.0); Alkaline Phosphatase 66 U/L (39-117); Anion Gap 10 (12-20); Aspartate Amino Transferase 27 U/L (5-37); Bilirubin Total 0.5 mg/dL (0.0-1.0); Blood Urea Nitrogen 17 mg/dL (9-16); Calcium 9.1 mg/dL (8.4-10.2); Carbon Dioxide 27 mmol/L (22-29); Chloride 106 mmol/L (96-108); Cholesterol 229 mg/dL (<200); Estimated Glomerular Filt Rate > 60; Glucose Fasting 93 mg/dL (60-99); HDL Cholesterol 36 mg/dL (>40); LDL Cholesterol Calculated 134 mg/dL (<100); Potassium 4.2 mmol/L (3.3-5.1); Sodium 139 mmol/L (135-145); Total Protein 7.2 g/dL (6.5-8.0); Triglycerides 299 mg/dL (<150)
[2024-05-09 10:43] LABS: Basophils Absolute Auto 0.1 X10*3/uL (0.0-0.2); Basophils Percent Auto 0.8 % (0-2); Eosinophils Absolute Auto 0.2 X10*3/uL (0.0-0.4); Eosinophils Percent Auto 2.6 % (0-4); Hematocrit 42.8 % (42.0-52.0); Hemoglobin 14.4 g/dl (14.0-18.0); Imm Gran Abs Auto 0.11 X10*3/uL (0.00-0.03); Imm Gran Pct Auto 1.5 % (0.0-0.4); Lymphocytes Absolute Auto 2.6 X10*3/uL (1.2-4.9); Lymphocytes Percent Auto 35.8 % (20-40); Mean Corpuscular HGB Conc 33.6 g/dl (31.0-36.0); Mean Corpuscular Hemoglobin 29.7 pg (27.0-33.0); Mean Corpuscular Volume 88.2 fL (80.0-98.0); Mean Platelet Volume 9.1 fL (9.4-12.4); Monocytes Absolute Auto 0.5 X10*3/uL (0.1-1.2); Monocytes Percent Auto 6.4 % (2-11); Neutrophils Absolute Auto 3.9 x10*3/uL (2.0-8.3); Neutrophils Percent Auto 52.9 % (45-73); Platelet Count 312 X10*3/uL (160-400); Red Blood Count 4.85 X10*6/uL (4.60-5.80); White Blood Count 7.4 X10*3/uL (4.8-10.8)
[2024-05-09 10:57] LABS: TSH reflex Free T4 2.02 uIU/mL (0.32-4.0)
== END 2024-05-09 06:02 | disposition home or self-care (01) ==
LOC: HO.HMGCLDS 06:01
PROVIDERS: PCP Internal Medicine; Visit Provider Internal Medicine
DX: Z00.01 Encounter for general adult medical examination with abnormal findings (principal); E66.3 Overweight; N52.9 Male erectile dysfunction, unspecified; R21 Rash and other nonspecific skin eruption
CPT/HCPCS: 36415; 80053; 80061; 84443; 85025

== ENCOUNTER 2024-05-22 08:49 | Outpatient (REF) | payer OTHER, SELFPAY ==
--- NOTE | ~2024-05-22 | XR_ITS ---
EXAMINATION: XR LUMBOSACRAL SPINE CLINICAL INFORMATION: M54.50 - Low back pain, unspecified COMPARISON: None available. TECHNIQUE: Three views of the lumbosacral spine. 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 For the purposes of this report, the last fully formed vertebral body will be termed L5. If intervention is considered, recommend confirmation of levels. Normal lordosis. No scoliosis. No compression deformity, fracture, or focal bony abnormality. There is normal alignment without subluxation. Disc spaces are preserved. Perhaps minimal degenerative disc changes L2-3, L3-4, and L5-S1. Facets are normally aligned. No significant facet degeneration. And sclerosis in the periarticular SI joints noted bilaterally, possibly degenerative although cannot exclude inflammatory etiology. XR/XR lumbar spine 2-3V IMPRESSION: 1. No acute findings lumbar spine. Transitional lumbosacral anatomy as discussed. 2. Very mild disc degeneration L2-3, L3-4, and L5-S1. Electronically signed by: Jesse Bearden MD 07/29/2024 11:50 AM [facility]
--- NOTE | ~2024-05-22 | XR_ITS ---
EXAMINATION: XR CHEST CLINICAL INFORMATION: R05.8 - Other specified cough COMPARISON: None available. TECHNIQUE: 2 views of the chest were obtained. FINDINGS: The cardiac, hilar, and mediastinal contours are normal. Mild right middle lobe discoid atelectasis versus linear scar. The lungs are otherwise clear bilaterally. There is no pneumothorax or pleural effusion. There is no focal osseous or soft tissue abnormality. XR/XR chest 2V IMPRESSION: No active pulmonary disease. Electronically signed by: Jesse Bearden MD 07/29/2024 11:45 AM [facility]
== END 2024-05-22 08:50 | disposition home or self-care (01) ==
LOC: HO.HMGCX 08:49
PROVIDERS: PCP Internal Medicine; Visit Provider Internal Medicine
DX: R05.8 Other specified cough (principal); M54.50 Low back pain, unspecified
CPT/HCPCS: 71046; 72100

== ENCOUNTER → 2024-05-22 08:58 | Outpatient (BNV) | payer OTHER, SELFPAY | PROVIDERS: PCP Internal Medicine; Visit Provider Radiology Diagnostic Radiology | DX: M54.50 Low back pain, unspecified (principal); R05.8 Other specified cough | CPT/HCPCS: 71046; 72100 ==

== ENCOUNTER 2024-06-05 08:37 | Outpatient (AMB) | payer OTHER, SELFPAY ==
--- NOTE | 2024-06-05 09:02 | A.OFFVIS_ITS ---
Intake Visit Reasons: 6M follow up- r/s from 05/31 Intake Note: Patient presents for follow up visit on: erectile dysfunction Urology Medications: sildenafil, tadalafil Blood Thinner: none Diabetic: no Courtesy Car Driver Required: No Accompanied by: Self / Same As Patient Allergies No Known Allergies Allergy (Verified 06/05/24 15:26) Medication List - Last Reconciled 06/05/24 by YESI Estrada clotrimazole-betamethasone 1-0.05 % 1 appl topical ONCE 30 days sildenafil (Viagra) 100 mg PO DAILY 30 days tadalafil (Cialis) 5 mg PO DAILY 90 days HPI Comments Details: Clifford is a very pleasant 38 year-old male patient of Dr. Duarte. He presents to the office today for follow-up of his erectile dysfunction. When asked patient reports to be doing and feeling well. He reports adequate erections with 5 mg of Cialis daily in p.r.n. dosing of Viagra as needed prior to sexual activity. He currently denies any bothersome urinary issues or concerns. Previous workup has included hypogonadal labs which are noted and trended below: Estradiol 08/19--27 FSH 08/19--4.1 LH 08/19--5.1 Prolactin 08/19--5.1 Total testosterone 08/19--440 Free testosterone 08/19--105.6 SHBG 08/19-- 15 PSA 08/19--0.8 He has a history of penile Doppler workup with previous urologist and being told everything was within normal. When asked he denies any signs and symptoms of sleep apnea. He reports to be happy with current voiding parameters. In office urinalysis results reviewed with the patient today. He does report noting premature ejaculation however this is not consistent and or persistent. We discussed further treatment options for premature ejaculation as well as potential causes. He otherwise offers no other issues or concerns at this time. [facility] Social History Housing: Apartment Patient Tobacco Use Status: Never used Tobacco e-Cigarette/Vaping Use: Never Used service: Yes Current occupational status: employed Cognitive needs: No Hearing needs: No Vision needs: No Review of Systems Const All systems reviewed & are unremarkable except as noted in HPI and below Physical Exam Const General: cooperative, healthy appearing, comfortable, no acute distress, well developed, alert and awake Orientation/consciousness: patient oriented x3 Limitations: no limitations HEENT Head: Yes normal to inspection, Yes normocephalic and Yes atraumatic Ears: hearing grossly normal bilaterally Eyes General: appearance normal, both eyes and all related structures Neck Neck: Yes normal visual inspection and Yes trachea midline Chest Chest palpation & inspection: normal inspection of the chest Resp Effort & Inspection: normal respiratory effort and able to speak in complete sentences Cardio Rate: regular rate GI Inspection: Yes normal to inspection General: Yes no CVA tenderness Back/Spine/Pelvis Back: no CVA tenderness Skin General skin exam: no rashes or lesions noted Neuro General: patient oriented x3 Extrem General: Yes normal to inspection Psych Appearance: grossly normal and well kempt Mental Status: mental status grossly normal Speech and movement: Normal speech and movement present and Clear speech present Affect: normal affect Attitude: cooperative Thought process: Normal thought process present Thought content: Normal thought content present Insight: Good insight present (Psych) Judgement: Good judgement present (Psych) Results AMB Urinalysis, Automated UA Leukoctes 0 Sai/uL Last Edit by Han Linares on 06/05/24 09:07 UA Nitrite Last Edit by aHn Linares on 06/05/24 09:07 UA Urobilinogen 0.2 mg/dL Last Edit by Han Linares on 06/05/24 09:07 UA Protein 15 mg/dL Last Edit by Han Linares on 06/05/24 09:07 UA pH 6.0 Last Edit by Han Linares on 06/05/24 09:07 UA Blood 0 [place]/uL Last Edit by Han Linares on 06/05/24 09:07 UA Specific [place] 1.030 Last Edit by Han Linares on 06/05/24 09:07 UA Ketone Negative Last Edit by Han Linares on 06/05/24 09:07 UA Bilirubin 0 mg/dL Last Edit by Han Linares on 06/05/24 09:07 UA Glucose 0 mg/dL Last Edit by Han Linares on 06/05/24 09:07 Results Reviewed Results Reviewed: Laboratory Last Values Urine pH (Auto) 6.0 06/05/24 09:06 Specific [place] (Auto) 1.030 06/05/24 09:06 Urine Protein (Auto) 15 mg/dL 06/05/24 09:06 Glucose (UA)(Auto) 0 mg/dL 06/05/24 09:06 Urine Ketones (Auto) Negative 06/05/24 09:06 Urine Blood (Auto) 0 [place]/uL 06/05/24 09:06 Urine Bilirubin (Auto) 0 mg/dL 06/05/24 09:06 Urine Urobilinogen (Auto) 0.2 mg/dL 06/05/24 09:06 Leukocyte Esterase (Auto) 0 Sai/uL 06/05/24 09:06 Assessment & Plan Assessment & Plan (1) Premature ejaculation: Code(s): F52.4 - Premature ejaculation Category: Medical (2) Erectile dysfunction: Code(s): N52.9 - Male erectile dysfunction, unspecified Category: Medical Qualifiers: Erectile dysfunction type: due to other cause Qualified Code(s): N52.8 - Other male erectile dysfunction Plan In office urinalysis results reviewed with the patient today; as noted above. We discussed premature ejaculation and further treatment options at length; patient will try [id number] duration Refills provided on daily dosing of tadalafil and p.r.n. Viagra. He reports be happy with current erections. He denies any bothersome urinary issues or concerns. He is happy with his current voiding parameters. We discussed lifestyle modifications to assist with premature ejaculation as well as erectile dysfunction. Follow-up in 6 months; or sooner with any issues, concerns, and or questions. Orders: Orders AMB Urinalysis Automated Today Z13.9 - Encounter for screening, unspecified Medications: Refilled sildenafil (Viagra) BIN [id number] [facility] Group [id number] 100 mg PO DAILY 30 tabs 6RF 30 days tadalafil (Cialis) [id number] [facility] [id number] Member [id number] 5 mg PO DAILY 90 tabs 3RF 90 days Patient Instructions: The patient had an opportunity to ask questions regarding the treatment plan. All questions were answered. Physical exam, labs, and imaging were discussed and reviewed in detail. As well as risks, benefits, and discussion of treatment choices. No major barriers to understanding were identified. The patient expressed understanding and agreement with the above treatment plan. The patient was made aware they should contact our office by phone for worsening of their current condition, the appearance of new symptoms, or with any questions or concerns. Compliance is encouraged with any medications and follow up testing that is ordered. It is a privilege to be allowed the opportunity to participate in? your urological care.? Again, if you have any questions or concerns If you have any questions or concerns please do not hesitate to contact me. The office is [phone]. This note is constructed using voice recognition software. While every effort has been made to ensure accuracy teacher's aide errors may have been included. Yours sincerely, YESI Estrada Coding Level of Care Code Est Pt Level 3 (77507) Diagnoses Premature ejaculation F52.4 Other male erectile dysfunction N52.8 Erectile dysfunction type: due to other cause
== END 2024-06-05 09:30 | disposition home or self-care (01) ==
PROVIDERS: PCP Internal Medicine; Visit Provider Nurse Practitioner Family
DX: F52.4 Premature ejaculation (principal); N52.8 Other male erectile dysfunction; Z13.9 Encounter for screening, unspecified
CPT/HCPCS: 99213

== ENCOUNTER → 2024-06-05 08:37 | Outpatient (BNVA) | payer OTHER, SELFPAY | PROVIDERS: PCP Internal Medicine; Visit Provider Nurse Practitioner Family | DX: N52.9 Male erectile dysfunction, unspecified (principal); F52.4 Premature ejaculation | CPT/HCPCS: 81003; 99212 ==

== ENCOUNTER 2024-06-21 15:09 | Outpatient (AMB) | payer OTHER, SELFPAY ==
[2024-06-21 15:11] VITALS: BP 122/74; PULSE 66; O2SAT 96; BMI 29.6
--- NOTE | 2024-06-21 15:11 | MHC.PC.OV ---
Vital Signs 06/21/24 15:11 Height 6 ft Weight 218 lb 4 oz BMI 29.6 BP 122/74 Blood Pressure Location Rt brachial Position Sitting Pulse 66 Pulse Source Pulse Oximeter Pulse Oximetry (%) 96 Oxygen Delivery Method Room Air Intake Visit Reasons: Regular Visit Allergies No Known Allergies Allergy (Verified 06/21/24 15:14) Medication List - Last Reconciled 06/21/24 by Tony Duarte MD clotrimazole-betamethasone 1-0.05 % 1 appl topical ONCE 30 days sildenafil (Viagra) 100 mg PO DAILY 30 days tadalafil (Cialis) 5 mg PO DAILY 90 days Tobacco use date assessed: 06/21/24 Dental Screening Dental Screen Date: 06/21/24 Did you have a dental visit in the last 12 months?: Yes Did you have a dental problem in the last 6 months where you did not have access to dental care?: No Was dental information given to patient?: Patient has dentist HPI Regular Visit HPI Details Follow-up appointment after labs Lab reviews Triglycerides has worsened from previous labs Patient has gained some weight since summer He is trying to lose Tells me that he is having some discomfort lower abdomen which is off and on On examination today there is no abdominal pain or muscular pain Patient will keep a track of what makes it worse and get back to me X-ray reports are not available at this time He offers no other complaints today [facility] Social History Housing: Apartment Patient Tobacco Use Status: Never used Tobacco e-Cigarette/Vaping Use: Never Used service: Yes Current occupational status: employed Cognitive needs: No Hearing needs: No Vision needs: No Questionnaire Thrive Questionnaire Date Thrive assessed: 06/21/24 I am a: Patient What is your living situation today?: I have a steady place to live Within the past 12 months, did the food you bought not last and you didn't have the money to get more?: Never true Within the past 12 months, did you worry whether your food would run out before you got money to buy more?: Never true Do you have trouble paying for medicines?: No Do you have trouble getting transportation to medical appointments?: No Do you have trouble paying your heating and electricity bill?: No Do you have trouble taking care of your child, family member or friend?: No Do you have trouble with day-to-day activities such as bathing, preparing meals, shopping, managing finances, etc.?: No Are you currently unemployed and looking for a job?: No Are you interested in more education?: No Please select the resources that you would like help with: None Currently or been in a relationship where the following occur: No concerns reported THRIVE Score: 0 AUDIT C Alcohol Use Questionnaire (AUDIT-C) 1. How often do you have a drink containing alcohol?: Never 3. How often do you have six or more drinks on one occasion?: Never Total Score: 0 Score Reviewed/Action Taken: Yes DHARA-7 AMB Questionnaire DHARA-7 Date DHARA - 7 assessed: 03/29/23 Source: Developed by Drs. Fabio Rosenbaum, Teresa Braswell, Jm Clifford and colleagues, with an educational rohith from [employer]. Review of Systems Const Denies chills and Denies fever(s) ENT Denies epistaxis and Denies nasal discharge Card Denies chest pain Resp Denies chest congestion, Denies cough and Denies hemoptysis GI Denies diarrhea and Denies nausea Skin/Breast Denies rash Neuro Reports no additional complaints Psych Reports no additional complaints Endo Reports no additional complaints Physical exam (Primary Care) Vital Signs: Last Vital Signs Pulse 66 06/21/24 15:11 BP 122/74 06/21/24 15:11 Pulse Ox 96 06/21/24 15:11 Oxygen Delivery Method Room Air 06/21/24 15:11 BMI result Body Mass Index 29.6 Tobacco/Smoking Status: Tobacco use Status Tobacco use date assessed 06/21/24 06/21/24 15:15 Patient Tobacco Use Status Never used Tobacco 06/21/24 15:15 e-Cigarette/Vaping Use Never Used 06/21/24 15:15 Thrive Assessment: Date of Thrive Assessment Date Thrive assessed 06/21/24 06/21/24 15:15 Currently or been in a relationship where the following occur: No concerns reported Const General: cooperative, comfortable and no acute distress Orientation/consciousness: patient oriented x3 HENMT Head: Yes normocephalic Eyes General: appearance normal, both eyes and all related structures Neck Neck: Yes supple Resp Effort & Inspection: normal respiratory effort, no cough and no stridor GI Other: Abdomen exam benign Skin General skin exam: turgor normal Neuro General: patient oriented x3, tone normal and moves all extremities Extrem Right lower extremity: no edema Left lower extremity: no edema Coding Level of Care Code Est Pt Level 3 (88434) Diagnoses High triglycerides E78.1 Assessment & Plan Assessment & Plan (1) High triglycerides: Comment: Make healthy food choices . Eat lots of fruits, vegetables, whole grains, and low-fat dairy products. Limit the amount of meat and fried or fatty foods that you eat. Be active Walk, garden, or do something active for 30 minutes or more on most days of the week. If you smoke, stop smoking. Smoking increases the chance of heart attack or stroke, or develop cancer.If you are over weight, Lose weight, Being overweight increases the risk of many health problems. Avoid alcohol Alcohol can increase blood sugar and blood pressure. Code(s): E78.1 - Pure hyperglyceridemia Category: Medical Plan Follow-up appointment after labs Lab reviews Triglycerides has worsened from previous labs Patient has gained some weight since summer He is trying to lose Tells me that he is having some discomfort lower abdomen which is off and on On examination today there is no abdominal pain or muscular pain Patient will keep a track of what makes it worse and get back to me X-ray reports are not available at this time He offers no other complaints today
== END 2024-06-21 16:36 | disposition home or self-care (01) ==
PROVIDERS: PCP Internal Medicine; Visit Provider Internal Medicine
DX: E78.1 Pure hyperglyceridemia (principal)

== ENCOUNTER → 2024-06-21 15:09 | Outpatient (BNVA) | payer OTHER, SELFPAY | PROVIDERS: PCP Internal Medicine; Visit Provider Internal Medicine | DX: E78.1 Pure hyperglyceridemia (principal) | CPT/HCPCS: 99212 ==

== ENCOUNTER 2024-08-01 08:32 | Outpatient (AMB) | payer OTHER, SELFPAY ==
--- NOTE | 2024-08-01 08:33 | A.OFFPC_ITS ---
Intake Visit Reasons: Discuss X ray Results Allergies No Known Allergies Allergy (Verified 06/21/24 15:14) Medication List - Last Reconciled 08/02/24 by Tony Duarte MD clotrimazole-betamethasone 1-0.05 % 1 appl topical ONCE 30 days sildenafil (Viagra) 100 mg PO DAILY 30 days tadalafil (Cialis) 5 mg PO DAILY 90 days Tobacco use date assessed: 06/21/24 Dental Screening Dental Screen Date: 06/21/24 HPI Discuss X ray Results HPI Details Chief Complaint The patient presents with inquiries about recent imaging results and current back condition. Assessment and Plan 38-year-old male with a history of degen erative disc disease presenting for review of recent imaging studies. The lumbar spine x-ray reveals mild arthritic changes suggesting degenerative disc disease with some degree of disc degeneration. The condition is currently not causing significant discomfort or impacting daily activities. The patient's chest x-ray has returned normal without any abnormalities noted. Potential management for the back condition involves conservative treatments unless symptoms exacerbate. There are no additional concerning symptoms at this time. 1. Degenerative Disc Disease The patient is experiencing mild degenerative changes in the lumbar spine as evidenced by recent x-ray findings. Current management consists of encouraging regular physical activity and physical therapy as initial conservative measures. Non-steroidal anti-inflammatory drugs (NSAIDs) like ibuprofen or naproxen may be recommended for symptomatic relief of episodic pain. No advanced interventions are deemed necessary at this stage due to the absence of severe symptoms or functional impairment. 2. Normal Chest X-Ray Discussion of the chest x-ray results revealed no abnormal findings. No further intervention or follow-up is required concerning the chest imaging as there are no presenting respiratory or cardiac complaints. Problem List - Degenerative Disc Disease - Normal Chest X-ray Patient Instructions - Engage in regular physical activity ta ilored to alleviate back pain. - Consider physical therapy if back pain becomes more frequent or severe. - Use NSAIDs like ibuprofen or naproxen for pain management if necessary. - Monitor symptoms and return if there i s a notable increase in severity or occurrence. - No immediate concerns from the chest x -ray results; no further action required currently. [facility] Social History Housing: Apartment Patient Tobacco Use Status: Never used Tobacco e-Cigarette/Vaping Use: Never Used service: Yes Current occupational status: employed Cognitive needs: No Hearing needs: No Vision needs: No Questionnaire Thrive Questionnaire Date Thrive assessed: 06/21/24 DHARA-7 AMB Questionnaire DHARA-7 Date DHARA - 7 assessed: 03/29/23 Source: Developed by Drs. Fabio Rosenbaum, Teresa Braswell, Jm Clifford and colleagues, with an educational rohith from [employer]. Review of Systems Const All systems reviewed & are unremarkable except as noted in HPI and below Physical exam (Primary Care) Tobacco/Smoking Status: Tobacco use Status Tobacco use date assessed 06/21/24 06/21/24 15:15 Patient Tobacco Use Status Never used Tobacco 06/21/24 15:15 e-Cigarette/Vaping Use Never Used 06/21/24 15:15 Thrive Assessment: Date of Thrive Assessment Date Thrive assessed 06/21/24 06/21/24 15:15 Telehealth Telehealth Telehealth Platform: [facility] Location of provider rendering services: practice address Location of patient: address on file Patient Identification confirmed using: Name, : Yes Telehealth method: voice only Patient verbally consented to treatment: Yes Patient verbally consented to billing insurance company: Yes Patient informed of any privacy concerns related to visit: Yes Minutes spent on Phone/Video with Pt.: 12 Coding Level of Care Code Tele Est Pt Level 3 (23298) Diagnoses Osteoarthritis of lumbar spine, unspecified spinal osteoarthritis complication status M47.816 Spinal osteoarthritis complication: unspecified spinal osteoarthritis Assessment & Plan Assessment & Plan (1) Degenerative joint disease (DJD) of lumbar spine: Code(s): M47.816 - Spondylosis without myelopathy or radiculopathy, lumbar region Category: Medical Qualifiers: Spinal osteoarthritis complication: unspecified spinal osteoarthritis Qualified Code(s): M47.816 - Spondylosis without myelopathy or radiculopathy, lumbar region Plan Chief Complaint The patient presents with inquiries about recent imaging results and current back condition. Chief Complaint The patient presents with inquiries about recent imaging results and current back condition. Assessment and Plan 38-year-old male with a history of degenerative disc disease presenting for review of recent imaging studies. The lumbar spine x-ray reveals mild arthritic changes suggesting degenerative disc disease with some degree of disc degeneration. The condition is currently not causing significant discomfort or impacting daily activities. The patient's chest x-ray has returned normal without any abnormalities noted. Potential management for the back condition involves conservative treatments unless symptoms exacerbate. There are no additional concerning symptoms at this time. 1. Degenerative Disc Disease The patient is experiencing mild degenerative changes in the lumbar spine as evidenced by recent x-ray findings. Current management consists of encouraging regular physical activity and physical therapy as initial conservative measures. Non-steroidal anti-inflammatory drugs (NSAIDs) like ibuprofen or naproxen may be recommended for symptomatic relief of episodic pain. No advanced interventions are deemed necessary at this stage due to the absence of severe symptoms or functional impairment. 2. Normal Chest X-Ray Discussion of the chest x-ray results revealed no abnormal findings. No further intervention or follow-up is required concerning the chest imaging as there are no presenting respiratory or cardiac complaints. Problem List - Degenerative Disc Disease - Normal Chest X-ray Patient Instructions - Engage in regular physical activity tailored to alleviate back pain. - Consider physical therapy if back pain becomes more frequent or severe. - Use NSAIDs like ibuprofen or naproxen for pain management if necessary. - Monitor symptoms and return if there is a notable increase in severity or occurrence. - No immediate concerns from the chest x-ray results; no further action required currently.
--- OUTSIDE RECORDS SUMMARY | 2024-08-07 00:23 | XMS_ITS | Continuity of Care Document ---
Author Name [facility] Organization [facility] Care Team Providers Care Salesperson Flowers Name Role Phone [facility] Unavailable Unavailable Problems Combined list of problems from Department of Defense and Veterans Affairs facilities. It does not include entries that were removed or entered in error. Problem Status Onset Date Problem Type Date of Resolution Comments Source visit for: multiphasic screening exam Inactive Condition [facility] visit for: administrative purpose Inactive Condition [facility] Need For Vaccination Against Viral Diseases Inactive Condition [facility] Patient Education Active Condition DoD sensorineural hearing loss Active Condition [facility] male erectile disorder Active Condition [facility] Laboratory Studies Inactive Condition Do D visit for: screening exam Inactive Condition [facility] varicocele scrotal Active Condition [facility] 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 [facility] male infertility Active Condition [facility] Patient Education - Drug Abstinence Active Condition [facility] assessment of patient condition work-related Active Condition [facility] no psychiatric diagnosis or condition on axis I Inactive Condition [facility] cubital tunnel syndrome left Inactive Condition [facility] psychiatric diagnosis or condition deferred on axis I Active Condition [facility] Patient Counseling: Inactive Condition D oD visit for: occupational health / fitness exam Active Condition [facility] visit for: services physical Active Condition [facility] Patient Counseling: Inquiry & Counseling Active Condition [facility] Medications Combined list of outpatient medications from Department of Defense and Veterans Affairs facilities.Medications provided include 1) outpatient medications from the last 15 months, and 2) patient-reported medications. Medication Details Route Status Patient Instructions Prescription Expires Prescription Number Last Dispense Date Ordering Provider Order Date Order Qty Source FLUTICASONE PROPIONATE (FLUTICASON E PROPIONATE) , 50MCG, SPRAY SUSP, NASAL, APOTEX EDINSON, 16 g AER W/ADAP Cancele d [id number] : 2023 0 Pharmac y Data Transac tion Service Facilit y SILDENAFIL CITRATE (sildenafil citrate), 100 MG, TABLET, ORAL, MYLAN, 30 ea. BOTTLE Cancele d [id number] : 2023 0 Pharmac y Data Transac tion Service Facilit y Allergies, Adverse Reactions, Alerts Combined list of allergies from Department of Defense and Veterans Affairs facilities. It does not include entries that were removed or entered in error. Substance Category Reaction Severity Reaction type Status Date Reported Comments Source No Known Allergies Drug allergy (disorder) active 03/26/2015 GURPREET Godoy Immunizations Combined list of available immunizations from the Department of Defense and Veterans Affairs facilities. Immunization Series Date Given Administered By Site Reaction Lot Number CVX Code Drug Presales Engineer Status Comments Source influenza, recombinant, quadrivalent, injectable, preservative free 2020 IFTIKHAR, () Not Given influenza , recombina nt, quadrival ent,injec table, preservat mary free DoD influenza, recombinant, quadrivalent, injectable, preservative free 2019 IFTIKHAR, () Not Given influenza , recombina nt, quadrival ent,injec table, preservat mary free DoD Seasonal, quadrIvalent, recombinant, injectable influenza vaccine, preservative free 0 2019 185 (MVX) complet ed Seasonal, quadrIval ent, recombina nt, injectabl e influenza vaccine, preservat mary free DoD Influenza, injectable, quadrivalent, preservative free 0 2018 150 (MVX) complet ed Influenza , injectabl e, quadrival ent, preservat mary free DoD Influenza, seasonal, injectable, preservative free 1 2017 UNK 140 Unknown (UNK) comple t ed Influenza , seasonal, injectabl e, preservat mary free DoD Influenza, seasonal, injectable, preservative free 1 2016 UNK 140 Unknown (UNK) comple t ed Influenza , seasonal, injectabl e, preservat mary free DoD Influenza, seasonal, injectable, preservative free 2015 DAVID GRIFFIN () Not Given Influenza , seasonal, injectabl e, preservat mary free DoD influenza, injectable, quadrivalent, preservative free 2014 KYA RIVERA () Not Given influenza , injectabl e, quadrival ent, preservat mary free DoD Influenza, injectable, quadrivalent, preservative free 1 2014 UNK 150 SmithKline (SKB) complet ed Influenza , injectabl e, quadrival ent, preservat mary free DoD Influenza, seasonal, injectable, preservative free 2013 RENA RYAN () Not Given Influenza , seasonal, injectabl e, preservat mary free DoD Influenza, seasonal, injectable, preservative free 0 2012 140 (MVX) complet ed Influenza , seasonal, injectabl e, preservat mary free DoD measles, mumps and rubella virus vaccine 1 2012 [id number] [facility] [employer] (MBL) complet ed measles, mumps and rubella virus vaccine DoD Influenza, seasonal, injectable, preservative free 0 2011 140 Sanofi Pasteur (PMC) complet ed Influenza , seasonal, injectabl e, preservat mary free DoD Influenza, seasonal, injectable 1 2011 [id number] 141 Other (OTH) complet ed Influenza , seasonal, injectabl e DoD influenza virus vaccine, live, attenuated, for intranasal use 1 2010 [id number] 111 [place]. (MED) complet ed influenza virus vaccine, live, attenuate d, for intranasa l use DoD influenza virus vaccine, split virus (incl. purified surface antigen)-reti red CODE 1 2009 [id number] 15 Unknown (UNK) comple t ed influenza virus vaccine, split virus (incl. purified surface antigen)- retired CODE DoD anthrax vaccine [id number] [facility] [employer] [facility] ([facility]) complet ed anthrax vaccine DoD tetanus toxoid, reduced diphtheria toxoid, and acellular pertu is vaccine, adsorbed 1 2009 [id number] [place], [place] [address]ine (SKB) complet ed tetanus toxoid, reduced diphtheri a toxoid, and acellular pertussis vaccine, adsorbed DoD typhoid Vi capsular polysaccharid e vaccine 1 2009 [id number] 101 Sanofi Pasteur (PMC) complet ed typhoid Vi capsular polysacch aride vaccine DoD Novel influenza-H1N 1-09, injectable 1 2009 [id number] 127 Unknown (UNK) complet ed Novel influenza -[id number], injectabl e DoD influenza virus vaccine, live, attenuated, for intranasal use 1 2008 [id number] 111 Unknown (UNK) comple t ed influenza virus vaccine, live, attenuate d, for intranasa l use DoD influenza virus vaccine, split virus (incl. purified surface antigen)-reti red CODE 0 2007 [id number] 15 [employer] (SKB) complet ed influenza virus vaccine, split virus (incl. purified surface antigen)- retired CODE DoD anthrax vaccine 8 2007 UNK 24 [facility] ([facility]) complet ed anthrax vaccine DoD influenza virus vaccine, live, attenuated, for intranasal use 1 2006 UNK 111 Unknown (UNK) comple t ed influenza virus vaccine, live, attenuate d, for intranasa l use DoD typhoid Vi capsular polysaccharid e vaccine 1 2006 [id number] 101 [employer] (AVB) complet ed typhoid Vi capsular polysacch aride vaccine DoD varicella virus vaccine 2 2006 [id number] 21 Sanofi Pasteur (PMC) complet ed varicella virus vaccine DoD anthrax vaccine 7 2006 [id number] 24 [facility] ([facility]) complet ed anthrax vaccine DoD hepatitis B vaccine, adult dosage 4 2006 [id number] 43 SmithKline (SKB) complet ed hepatitis B vaccine, adult dosage DoD hepatitis A vaccine, adult dosage 2 2005 [id number] 52 Unknown (UNK) complet ed hepatitis A vaccine, adult dosage DoD influenza virus vaccine, live, attenuated, for intranasal use 1 2005 [id number] 111 Unknown (UNK) comple t ed influenza virus vaccine, live, attenuate d, for intranasa l use DoD influenza virus vaccine, split virus (incl. purified surface antigen)-reti red CODE 1 2004 [id number] 15 [place] (AB) complet ed influenza virus vaccine, split virus (incl. purified surface antigen)- retired CODE DoD anthrax vaccine 6 2004 [id number] 24 [facility] ([facility]) complet ed anthrax vaccine DoD hepatitis A vaccine, adult dosage 1 2004 [id number] 52 Unknown (UNK) complet ed hepatitis A vaccine, adult dosage DoD measles, mumps and rubella virus vaccine 1 2004 [id number] 03 Unknown (UNK) comple t ed measles, mumps and rubella virus vaccine DoD tetanus and diphtheria toxoids, adsorbed, preservative free, for adult use (2 Lf of tetanus toxoid and 2 Lf of diphtheria toxoid) 1 2004 [id number] 09 Unknown (UNK) comple t ed tetanus and diphtheri a toxoids, adsorbed, preservat mary free, for adult use (2 Lf of tetanus toxoid and 2 Lf of diphtheri a toxoid) DoD poliovirus vaccine, inactivated 1 2004 [id number] 10 Unknown (UNK) comple t ed polioviru s vaccine, inactivat ed DoD influenza virus vaccine, split virus (incl. purified surface antigen)-reti red CODE 1 2004 [id number] 15 Unknown (UNK) comple t ed influenza virus vaccine, split virus (incl. purified surface antigen)- retired CODE DoD meningococcal polysaccharid e vaccine (MPSV4) 1 2004 [id number] 32 Unknown (UNK) comple t ed meningoco ccal polysacch aride vaccine (MPSV4) DoD typhoid Vi capsular polysaccharid e vaccine 1 2004 [id number] 101 Unknown (UNK) comple t ed typhoid Vi capsular polysacch aride vaccine DoD hepatitis B vaccine, adult dosage 3 2003 UNK 43 Unknown (UNK) comple t ed hepatitis B vaccine, adult dosage DoD anthrax vaccine [id number] [facility] complet ed anthrax vaccine DoD yellow fever vaccine 1 2003 [id number] 37 Unknown (UNK) comple t ed yellow fever vaccine DoD hepatitis B vaccine, adult dosage 2 2003 [id number] 43 Merck (MSD) complet ed hepatitis B vaccine, adult dosage DoD influenza virus vaccine, split virus (incl. purified surface antigen)-reti red CODE 1 2002 [id number] 15 Vishnu (EVN) complet ed influenza virus vaccine, split virus (incl. purified surface antigen)- retired CODE DoD anthrax vaccine [id number] [facility] complet ed anthrax vaccine DoD anthrax vaccine 3 2002 UNK 24 Unknown (UNK) comple t ed anthrax vaccine DoD anthrax vaccine 2 2002 [id number] 24 [facility] complet ed anthrax vaccine DoD anthrax vaccine 1 2002 [id number] 24 [employer] [place] (MIP) complet ed anthrax vaccine DoD hepatitis B vaccine, adult dosage 1 2002 [id number] 43 Merck (MSD) complet ed hepatitis B vaccine, adult dosage DoD typhoid Vi capsular polysaccharid e vaccine 0 2002 [id number] 101 Sanofi Pasteur (PMC) complet ed typhoid Vi capsular polysacch aride vaccine DoD vaccinia (smallpox) vaccine 0 2002 [id number] 75 Wyeth-Ayerst (WAL) complet ed vaccinia (smallpox ) vaccine DoD varicella virus vaccine 1 2001 [id number] 21 Merck (MSD) complet ed varicella virus vaccine DoD influenza virus vaccine, split virus (incl. purified surface antigen)-reti red CODE 0 2001 UNK 15 Sanofi Pasteur (PMC) complet ed influenza virus vaccine, split virus (incl. purified surface antigen)- retired CODE DoD Encounters Combined list of: 1) Encounters from Department of Veterans Affairs facilities going back up to thelast 18 months. 2) Encounters from the Department of Defense facilities going back up to 280 months. Location Location Details Encounter Type Encounter Number Reason For Visit Attending Provider ADM Date DC Date Status Disposition Source [place] [facility]) OUTPATIENT [id number] LEW CADENA 06/13 Released w/o Limitations Shanda elena [facility] [place] [facility] ) [facility] [place]) [facility] [id number] [facility] RICARDO VEGA 09/20 Released w/o Limitations [facility], [employer] [place]Med[place]am[place] t[place]) Theater Facility OUTPATIENT [id number] 05/03 Released w/o Limitations Theater Facilit [facility] Remberto lino [facility], [place] [facility] [facility] OUTPATIENT [id number] DONN NINO 06/29 Released w/o Limitations [place] [facility], [employer]Prim trace[place] [facility] [facility]) Remberto lino [facility], [facility] [place]Urolog [place]) [place]PAT[place] [id number] MALE INFERTI LITY (CX & REFUSED EARLIER APPTS) JOSE C DAVIS 08/08 Released w/o Limitations [facility], [employer] [place]) [facility] [employer] [place]) OUTPATIENT [id number] LABS F/U KHADIJAH CHILEL V 08/11 Released w/o Limitations [facility], [employer] [facility] [employer] TELE CONSULT [id number] Notes Entered by: KHADIJAH CHILEL V 15 Aug 2011 0952 ------- ------- ------- ------- -- Called patient with elevate d K+ level of 6.0. KHADIJAH CHILEL V 08/15 [facility] [employer] [place] [facility] [employer] [place]) [place]PAT[place] [id number] f/u labs JOSE C DAVIS 11/15 Released w/o Limitations [facility], [employer] [place] [facility] [employer] [place] OUTPATIENT [id number] H-1 asy loss, masking ARIELLE PERRY 12/12 Released w/o Limitations [facility], [employer] [place] ) [facility] [employer] [place]) [place] [id number] to see JOSE C Coley 12/14 Released w/o Limitations [facility], [employer] [place] [facility] [employer] [place] OUTPATIENT [id number] mri results 4 bct DIONTE SEQUEIRA 12/26 Released w/o Limitations [facility], [employer] [facility]) [facility] [place]) OUTPATIENT [id number] PHA TIMMY STOVER D 09/27 Released w/o Limitations [facility] [place] [facility] [place] OUTPATIENT [id number] Labs TIMMY STOVER D 03/27 Released w/o Limitations [facility] [place] [facility] [place] S01A Team A) OUTPATIENT [id number] PHA VALENTINA JARVIS 12/09 Released w/o Limitations [facility] [place] S[facility]) [facility] [place] [place] [facility] OUTPATIENT [id number] Notes Entered by: Jenna CARRERO 09 Dec 2013 1148 ------- ------- ------- ------- -- annual hearing screeni BLUE Hogan 12/09 Released w/o Limitations [facility] [place] [place] [facility] ) [facility] [place] S01B Team B) OUTPATIENT [id number] [facility] PATITO YODER 03/26 Released w/o Limitations [facility] [place] S[facility]B Team B[place] [facility] [place] M02D Team 2) OUTPATIENT [id number] [facility] (outsid e pcm - 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 er) ELAINE TYLER 06/29 Released w/o Limitations [facility] [place] M02D Team 2) [place]([facility] F02B [facility]) TELE CONSULT [id number] Notes Entered by: JAYLON GANT 28 Oct 2019 1014 ------- ------- ------- ------- -- Month Medicat ion Review YARELI REDDING 10/27 [place]([facility] F02B [place]) [facility] [place] [address]([facility]) OUTPATIENT [id number] 0 [facility] USAREC GARRETT JayneDIONTE 10/13 Released w/o Limitations [facility] [place] [address]([facility] Read[facility]) Procedures Combined list of: 1) Procedures from Department of Veterans Affairs facilities going back up to thelast 18 months, not all VA non-surgical procedures are included; 2) All procedures from the Department of Defense facilities. Procedure Procedure Type Code Date Perfomer Comments Sour e Audiometry Group Testing Audiometry Grou p Testing 72384 014 BLUE SERRA [facility] Venipuncture Venipuncture 76424 013 TIMMY STOVER [facility] Immunization Administration By Injection, One Vaccine Immunization Administration By Injection, One Vaccine 87508 013 [facility]ated [facility] Vaccines Viral Measles, Mumps and Rubella, Live Vaccines Viral Measles, Mumps and Rubella, Live 20381 013 Located within [facility] A e ment & Intervention Blood Pre ure Measured 013 Located [facility] Screening Test Of Visual Acuity, Quantitative, Bilateral Screening Test Of Visual Acuity, Quantitative, Bilateral [address] [place] [address] Ear Protector Attenuation Measurements Ear Protector Attenuation Measurements 68064 012 [facility] Acoustic Immittance Test Acoustic Immittance Test 95209 012 [facility] Comprehensive Audiometry Comprehensive Audiometry 21766 012 [facility] Behavioral health counseling and therapy, per 15 minutes 011 WALESKA SAMSON [facility] Alcohol and/or drug a e ment 011 WALESKA SAMSON [facility] Psychotherapy Individual Approximately 30 Minutes Psychotherapy Individual Approximately 30 Minutes [id number] TIEN COBURN [facility] Health And Behav A e mt Each 15 Min Initial A e ment Health And Behav Assessmt Each 15 Min Initial Assessment [id number] 011 AJITH AARON Do[facility] Health And Behav A e mt Each 15 Min Initial A e ment Health And Behav Assessmt Each 15 Min Initial Assessment 12047 009 DMITRI BHANDARI [facility] Threshold Audiogram (Pure Tone) Threshold Audiogram (Pure Tone) 42037 LEW CADENA [facility] Ear Protector Attenuation Measurements Ear Protector Attenuation Measurements 55614 LEW CADENA Patient Training And Self-Care Skills Patient Training And Self-Care Skills 25950 LEW CADENA Psychotherapy Group Interactive Psychotherapy Group Interactive [phone] CARLIE SANCHEZ [facility] Preventive Medicine Administration Of Health Risk Questionnaire Patient-Focused Preventive Medicine Administration Of Health Risk Questionnaire Patient-Focused 55429 KATE ALSOTN [facility] Brief communication technology-based service, e.g. virtual check-in, by a physician or other qualified health care profe tyrone who can report evaluation and management services, provided to an established patient, not originating from a related E/M service provided within the previous 7 days nor leading to an E/M service or procedure within the next 24 hours or soonest available appointment; 5-10 minutes of medical discu ion KATE ALSTON [facility] AUDIOMETRIC TESTING OF GROUPS 014 [facility] COLLECTION OF VENOUS BLOOD BY VENIPUNCTURE [facility] IMMUNIZATION ADMINISTRATION (INCLUDES PERCUTANEOUS, INTRADERMAL, SUBCUTANEOUS, OR INTRAMUSCULAR INJECTIONS); 1 VACCINE (SINGLE OR COMBINATION VACCINE/TOXOID) [facility] SUPP &MATERIAL (EXCEPT SPECTACLE),PROVID,THE PHYS/OTH QUALIFIED HEALTH LIFE MANAGER OVER &ABOVE THOSE USUALLY INCLD W THE OFFICE VISIT/OTH SER RENDERED (LIST DRUG,TRAYS,SUPP,OR MATERIAL PROVID) [facility] SELF-CARE/HOME MANAGMENT TRAIN (EG,ACT OF DAILY LIVING (ADL) &COMPENSAT TRAIN,MEAL PREPARATION,SAFETY PROCS,AND INSTRUCT IN USE OF ASST TECHNOLOGY DEV/ADPT EQUIP) DIR ONE-ON-ONE CONT,EA 15 MINUTES [facility] COLLECTION OF VENOUS BLOOD BY VENIPUNCTURE [facility] INFLUENZA VIRUS VACCINE, TRIVALENT, LIVE (LAIV3), FOR INTRANASAL USE [facility] SCREENING TEST OF VISUAL ACUITY, QUANTITATIVE, BILATERAL [facility] INTERACTIVE GROUP PSYCHOTHERAPY [facility] SUPP &MATERIAL (EXCEPT SPECTACLE),PROVID,THE PHYS/OT QUALIFIED HEALTH LIFE MANAGER OVER &ABOVE THOSE USUALLY INCLD W THE OFFICE VISIT/OTH SER RENDERED (LIST DRUG,TRAYS,SUPP,OR MATERIAL PROVID) [facility] HANDLING AND/OR CONVEYANCE OF SPECIMEN FOR TRANSFER FROM THE OFFICE TO A LABORATORY [facility] ANTHRAX VACCINE, FOR SUBCUTANEOUS OR INTRAMUSCULAR USE [facility] UNLISTED OPHTHALMOLOGICAL SERVICE OR PROCEDURE [facility] SUPP &MATERIAL (EXCEPT SPECTACLE),PROVID,THE PHYS/OT QUALIFIED HEALTH LIFE MANAGER OVER &ABOVE THOSE USUALLY INCLD W THE OFFICE VISIT/OTH SER RENDERED (LIST DRUG,TRAYS,SUPP,OR MATERIAL PROVID) [facility] EDUCATIONAL SUPPLIES, SUCH BOOKS, TAPES, AND PAMPHLETS, FOR THE PATIENT'S EDUCATION AT COST TO PHYSICIAN OR OTHER QUALIFIED HEALTH LIFE MANAGER [facility] PHYS/OT QUALIFIED HEALTH LIFE MANAGER QUALIFIED,EDUCATION,ADELINA N,LICENSURE/REGULATION (WHEN APPLICABLE) EDUC SER RENDERED TO PATS IN A GRP SETTING (EG,,OBESITY,OR DIABETIC INSTRUCT) [facility] PURE TONE AUDIOMETRY (THRESHOLD); AIR ONLY [facility] SKIN TEST; TUBERCULOSIS, INTRADERMAL [facility] PHYS/OT QUALIFIED HEALTH LIFE MANAGER QUALIFIED,EDUCATION,ADELINA N,LICENSURE/REGULATION (WHEN APPLICABLE) EDUC SER RENDERED TO PATS IN A GRP SETTING (EG,,OBESITY,OR DIABETIC INSTRUCT) [facility] EDUCATIONAL SUPPLIES, SUCH BOOKS, TAPES, AND PAMPHLETS, FOR THE PATIENT'S EDUCATION AT COST TO PHYSICIAN OR OTHER QUALIFIED HEALTH LIFE MANAGER 003 DoD EAR PROTECTOR ATTENUATION MEASUREMENTS 012 [facility] BEHAVIORAL HEALTH COUNSELING AND THERAPY, PER 15 MINUTES 011 DoD ALCOHOL AND/OR DRUG ASSESSMENT [facility] INDIVIDUAL PSYCHOTHERAPY, INSIGHT ORIENTED, BEHAVIOR MODIFYING AND/OR SUPPORTIVE, IN AN OFFICE OR OUTPATIENT FACILITY, APPROXIMATELY 20 TO 30 MINUTES [id number] WITH THE PATIENT 011 DoD SKIN TEST; TUBERCULOSIS, INTRADERMAL 011 DoD HEALTH&BEHAV ASSESSMENT (EG, HEALTH-FOC CLINICAL INTERVIEW, BEHAVIORAL OBSERVATIONS, PSYCHOPHYSICOLOGICAL MONITOR, HEALTH-ORIENT QUESTIONNAIRES), EA 15 MIN [id number] W THE PATIENT; INIT ASSESSMENT [facility] TETANUS, DIPHTHERIA TOXOIDS AND ACELLULAR PERTUSSIS VACCINE (TDAP), WHEN ADMINISTERED TO INDIVIDUALS 7 YEARS OR OLDER, FOR INTRAMUSCULAR USE [facility] TYPHOID VACCINE, CAPSULAR POLYSACCHARIDE (VICPS), FOR INTRAMUSCULAR USE DoD HEALTH&BEHAV ASSESSMENT (EG, HEALTH-FOC CLINICAL INTERVIEW, BEHAVIORAL OBSERVATIONS, PSYCHOPHYSICOLOGICAL MONITOR, HEALTH-ORIENT QUESTIONNAIRES), EA 15 MIN [id number] W THE PATIENT; INIT ASSESSMENT DoD SKIN TEST; TUBERCULOSIS, INTRADERMAL [facility] SKIN TEST; TUBERCULOSIS, INTRADERMAL [facility] ANTHRAX VACCINE, FOR SUBCUTANEOUS OR INTRAMUSCULAR USE DoD POSTOPERATIVE FOLLOW-UP VISIT, NORMALLY INCLUDED IN THE SURGICAL PACKAGE, INDICATE THAT EVALUATION & MANAGEMENT SERVICE WAS PERFORMED DURING A POSTOPERATIVE PERIOD REASON RELATED ORIGINAL PROCEDURE DoD POSTOPERATIVE FOLLOW-UP VISIT, NORMALLY INCLUDED IN THE SURGICAL PACKAGE, INDICATE THAT EVALUATION & MANAGEMENT SERVICE WAS PERFORMED DURING A POSTOPERATIVE PERIOD REASON RELATED ORIGINAL PROCEDURE [facility] TYPHOID VACCINE, ACETONE-KILLED, DRIED (AKD), FOR SUBCUTANEOUS USE ([place] ) DoD POSTOPERATIVE FOLLOW-UP VISIT, NORMALLY INCLUDED IN THE SURGICAL PACKAGE, INDICATE THAT EVALUATION & MANAGEMENT SERVICE WAS PERFORMED DURING A POSTOPERATIVE PERIOD REASON RELATED ORIGINAL PROCEDURE DoD POSTOPERATIVE FOLLOW-UP VISIT, NORMALLY INCLUDED IN THE SURGICAL PACKAGE, INDICATE THAT EVALUATION & MANAGEMENT SERVICE WAS PERFORMED DURING A POSTOPERATIVE PERIOD REASON RELATED ORIGINAL PROCEDURE DoD UNLISTED PROCEDURE, ANTERIOR SEGMENT OF EYE DoD PHOTOREFRACTIVE KERATECTOMY (PRK) [facility] UNLISTED OPHTHALMOLOGICAL SERVICE OR PROCEDURE [facility] OPHTHALMIC ULTRASOUND, ECHOGRAPHY, DIAGNOSTIC; CORNEAL PACHYMETRY, UNILATERAL OR BILATERAL (DETERMINATION OF CORNEAL THICKNESS) [facility] VARICELLA VIRUS VACCINE (RENEA), LIVE, FOR SUBCUTANEOUS USE [facility] BRIEF COMM TECH-BASE SERV,E.G. VIRT CHK-IN,BY PHYS/OTH QUAL HCP,RPT E&M SERV,PROV TO EST PT,NOT ORIG FRM REL E/M SERV PROV W/IN PREV 7DAY NOR LEAD TO E/M SRV/PX W/IN NEXT 24HR/SOON DREW; 5-10 MIN DISC 021 DoD Social History Combined list of available smoking, tobacco, and other social history from [facility] and [facility] facilities. Social History Type Response Date Comment [facility] e This section is an empty social history section. DoD
== END 2024-08-01 11:25 | disposition home or self-care (01) ==
LOC: HO.HMCC 08:33
PROVIDERS: PCP Internal Medicine; Visit Provider Internal Medicine
DX: M47.816 Spondylosis without myelopathy or radiculopathy, lumbar region (principal)

== ENCOUNTER 2024-12-27 13:09 | Outpatient (AMB) | payer OTHER, SELFPAY ==
[2024-12-27 13:16] VITALS: BP 120/72; PULSE 65; O2SAT 97; BMI 29.3
--- NOTE | 2024-12-27 13:16 | MHC.PC.OV ---
Vital Signs 12/27/24 13:16 Height 6 ft Weight 216 lb BMI 29.3 BP 120/72 Blood Pressure Location Lt brachial Position Sitting Pulse 65 Pulse Source Pulse Oximeter Pulse Oximetry (%) 97 Oxygen Delivery Method Room Air Intake Visit Reasons: follow up paperwork Allergies No Known Allergies Allergy (Verified 12/27/24 13:16) Medication List - Last Reconciled 12/27/24 by Tony Duarte MD clotrimazole-betamethasone 1-0.05 % 1 appl topical ONCE 30 days sildenafil (Viagra) 100 mg PO DAILY 30 days tadalafil (Cialis) 5 mg PO DAILY 90 days Tobacco use date assessed: 12/27/24 Dental Screening Dental Screen Date: 12/27/24 Did you have a dental visit in the last 12 months?: Yes Did you have a dental problem in the last 6 months where you did not have access to dental care?: No Was dental information given to patient?: Patient has dentist HPI follow up paperwork HPI Details History - The patient is a 39-year-old male presenting with a skin rash. - The skin rash has been present for approximately four to five months. - The rash primarily affects the posterior aspect of the right buttock. - The rash has been persistent despite attempting treatment with topical creams at home. - The patient denies any family history of psoriasis, though environmental factors such as sweating have been discussed as potential contributors to the rash. - Previous laboratory results from a visit in April indicated normal kidney function and electrolytes, normal blood glucose, slightly elevated liver enzyme levels, and borderline hypercholesterolemia. - The patient expresses interest in reevaluating cholesterol and diabetes status. Problem List - Skin Rash - Back Pain - Elevated Liver Enzyme - Hypercholesterolemia - Family History of Diabetes Mellitus Patient Instructions - Use the prescribed cream as directed to manage the skin rash. - Plan to see a internal combustion engine assembler for further evaluation of the rash. - Schedule and complete laboratory tests for cholesterol and diabetes as discussed. - Consider fasting before the next blood test appointment if required. - Continue to use the patient portal to monitor lab results and appointment schedules. 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 1. Little interest or pleasure in doing things: not at all 2. Feeling down, depressed, or hopeless: not at all 3. Trouble falling or staying asleep, or sleeping too much: not at all 4. Feeling tired or having little energy: not at all 5. Poor appetite or overeating: not at all 6. Feeling bad about yourself - or that you are a failure or have let yourself or your family down: not at all 7. Trouble concentrating on things, such as reading the newspaper or watching television: not at all 8. Moving or speaking so slowly that other people could have noticed. Or the opposite - being so fidgety or restless that you have been moving around a lot more than usual: not at all 9. Thoughts that you would be better off or of hurting yourself in some way: not at all Total score: 0 Depression Screening Interpretation: Negative Depression Screening Done: Yes 33080 - PHQ-9 Billing: Yes Source: Developed by Drs. Fabio Rosenbaum, Teresa Braswell, Jm Clifford and colleagues, with an educational rohith from [employer]. Thrive Questionnaire Date Thrive assessed: 12/23/24 I am a: Patient What is your living situation today?: I have a steady place to live Within the past 12 months, did the food you bought not last and you didn't have the money to get more?: Never true Within the past 12 months, did you worry whether your food would run out before you got money to buy more?: Never true Do you have trouble paying for medicines?: No Do you have trouble getting transportation to medical appointments?: No Do you have trouble paying your heating and electricity bill?: No Do you have trouble taking care of your child, family member or friend?: No Do you have trouble with day-to-day activities such as bathing, preparing meals, shopping, managing finances, etc.?: No Are you currently unemployed and looking for a job?: No Are you interested in more education?: No Please select the resources that you would like help with: None Currently or been in a relationship where the following occur: No concerns reported THRIVE Score: 0 DHARA-7 AMB Questionnaire DHARA-7 Date DHARA - 7 assessed: 03/29/23 Source: Developed by Drs. Fabio Rosenbaum, Teresa Braswell, Jm Clifford and colleagues, with an educational rohith from [employer]. Physical exam (Primary Care) Vital Signs: Last Vital Signs Pulse 65 12/27/24 13:16 BP 120/72 12/27/24 13:16 Pulse Ox 97 12/27/24 13:16 Oxygen Delivery Method Room Air 12/27/24 13:16 BMI result Body Mass Index 29.3 Tobacco/Smoking Status: Tobacco use Status Tobacco use date assessed 12/27/24 12/27/24 13:19 Patient Tobacco Use Status Never used Tobacco 12/27/24 13:19 e-Cigarette/Vaping Use Never Used 12/27/24 13:19 PHQ-9: PHQ-9 Score PHQ-9: Total score 0 12/27/24 13:19 Depression Screening Interpretation: Negative Thrive Assessment: Date of Thrive Assessment Date Thrive assessed 12/23/24 12/27/24 13:19 Currently or been in a relationship where the following occur: No concerns reported Coding Level of Care Code Est Pt Level 3 (80222) Diagnoses Rash R21 LFT elevation R79.89 Family history of diabetes mellitus Z83.3 Additional Codes PHQ-9 - 11286 - PHQ-9 Billing: Yes ([id number]) Assessment & Plan Assessment & Plan (1) Rash: Code(s): R21 - Rash and other nonspecific skin eruption Category: Medical (2) LFT elevation: Code(s): R79.89 - Other specified abnormal findings of blood chemistry Category: Medical (3) Family history of diabetes mellitus: Code(s): Z83.3 - Family history of diabetes mellitus Category: Medical Plan History - The patient is a 39-year-old male presenting with a skin rash. - The skin rash has been present for approximately four to five months. - The rash primarily affects the posterior aspect of the right buttock. - The rash has been persistent despite attempting treatment with topical creams at home. - The patient denies any family history of psoriasis, though environmental factors such as sweating have been discussed as potential contributors to the rash. - Previous laboratory results from a visit in April indicated normal kidney function and electrolytes, normal blood glucose, slightly elevated liver enzyme levels, and borderline hypercholesterolemia. - The patient expresses interest in reevaluating cholesterol and diabetes status. Problem List - Skin Rash - Back Pain - Elevated Liver Enzyme - Hypercholesterolemia - Family History of Diabetes Mellitus Patient Instructions - Use the prescribed cream as directed to manage the skin rash. - Plan to see a internal combustion engine assembler for further evaluation of the rash. - Schedule and complete laboratory tests for cholesterol and diabetes as discussed. - Consider fasting before the next blood test appointment if required. - Continue to use the patient portal to monitor lab results and appointment schedules. Orders: Orders Comprehensive [place]. Panel Fast Today R21 - Rash and other nonspecific skin eruption, R79.89 - Other specified abnormal findings of blood chemistry, Z83.3 - Family history of diabetes mellitus Lipid Panel Today R21 - Rash and other nonspecific skin eruption, R79.89 - Other specified abnormal findings of blood chemistry, Z83.3 - Family history of diabetes mellitus Comprehensive Met. Panel Today R21 - Rash and other nonspecific skin eruption, R79.89 - Other specified abnormal findings of blood chemistry, Z83.3 - Family history of diabetes mellitus TSH reflex Free T4 Today R21 - Rash and other nonspecific skin eruption, R79.89 - Other specified abnormal findings of blood chemistry, Z83.3 - Family history of diabetes mellitus Referrals Dermatology Referral R21 - Rash and other nonspecific skin eruption Medications: New clotrimazole-betamethasone 1-0.05 % 1 appl topical ONCE 30 days 90 grams 0RF Discontinued clotrimazole-betamethasone 1-0.05 % Discontinued Reason: Duplicate 1 appl topical ONCE 30 days 45 grams 0RF
--- OUTSIDE RECORDS SUMMARY | 2024-12-27 13:33 | XMS_ITS | Continuity of Care Document ---
Author Name [employer] Organization [employer] Care Team Providers Care Mail Deliverer Name Role Phone [employer] Unavailable Unavailable Problems Combined list of problems from Department of Defense and Veterans Affairs facilities. It does not include entries that were removed or entered in error. Problem Status Onset Date Problem Type Date of Resolution Comments Source visit for: multiphasic screening exam Inactive Condition [facility] visit for: administrative purpose Inactive Condition [facility] Vaccines Prophylactic Need Against Viral Diseases Inactive Condition [facility] Patient Education Active Condition DoD SENSORINEURAL HEARING LOSS Active Condition [facility] MALE ERECTILE DISORDER Active Condition [facility] Laboratory Studies Inactive Condition Do D visit for: screening exam Inactive Condition [facility] VARICOCELE SCROTAL Active Condition [facility] 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 Condition [facility] MALE INFERTILITY Active Condition [facility] Patient Education - Drug Abstinence Active Condition [facility] ASSESSMENT OF PATIENT CONDITION WORK-RELATED Active Condition [facility] NO PSYCHIATRIC DIAGNOSIS OR CONDITION ON AXIS I Inactive Condition [facility] CUBITAL TUNNEL SYNDROME LEFT Inactive Condition [facility] PSYCHIATRIC DIAGNOSIS OR CONDITION DEFERRED ON AXIS I Active Condition [facility] Patient Counseling: Inactive Condition D oD visit for: occupational health / fitness exam Active Condition [facility] visit for: services physical Active Condition [facility] Patient Counseling: Inquiry & Counseling Active Condition [facility] Medications Combined list of outpatient medications from [...] EDINSON, 14 g AER W/ADAP Cancele d [id number] : 2023 0 Pharmac y Data Transac tion Service Facilit y Allergies, Adverse Reactions, Alerts Combined list of allergies from Department of Defense and Veterans Affairs facilities. It does not include entries that were removed or entered in error. Substance Category Reaction Severity Reaction type Status Date Reported Comments Source No Known Allergies Drug allergy (disorder) active 03/26/2015 [facility] [place] Immunizations Combined list of available immunizations from the Department of Defense and Veterans Affairs facilities. Immunization Series Date Given Administered By Site Reaction Lot Number CVX Code Drug Materials Management Manager Status Comments Source influenza, recombinant, quadrivalent, injectable, [...] mumps and rubella virus vaccine 1 2012 [id number] [facility] ([facility]) complet ed measles, mumps and rubella virus vaccine DoD Influenza, seasonal, injectable, preservative free 0 2011 140 Sanofi Pasteur (PMC) complet ed Influenza , seasonal, injectabl e, preservat mary free DoD Influenza, seasonal, injectable 1 2011 [id number] 141 Other (OTH) complet ed Influenza , seasonal, injectabl e DoD influenza virus vaccine, live, attenuated, for intranasal use 1 2010 [id number] Micello. (MED) complet ed influenza virus vaccine, live, attenuate d, for intranasa l use DoD influenza virus vaccine, split virus (incl. purified surface antigen)-reti red CODE 1 2009 [id number] Unknown (UNK) comple t ed influenza virus vaccine, split virus (incl. purified surface antigen)- retired CODE DoD anthrax vaccine 9 2009 [id number] [employer] [facility] ([facility]) complet ed anthrax vaccine DoD tetanus toxoid, reduced diphtheria toxoid, and acellular pertu is vaccine, adsorbed 1 2009 [id number] 115 SmithKline (SKB) complet ed tetanus toxoid, reduced diphtheri a toxoid, and acellular pertussis vaccine, adsorbed DoD typhoid Vi capsular polysaccharid e vaccine 1 2009 [id number] Sanofi Pasteur (PMC) complet ed typhoid Vi capsular polysacch aride vaccine DoD Novel influenza-H1N 1-09, injectable 1 2009 [id number] 127 Unknown (UNK) complet ed Novel influenza -M7D4-44, injectabl e DoD influenza virus vaccine, live, attenuated, for intranasal use 1 2008 [id number] 111 Unknown (UNK) comple t ed influenza virus vaccine, live, attenuate d, for intranasa l use DoD influenza virus vaccine, split virus (incl. purified surface antigen)-reti red CODE 0 2007 [id number] 15 SmithK[employer] (SKB) complet ed influenza virus vaccine, split virus (incl. purified surface antigen)- retired CODE DoD anthrax vaccine 8 2007 UNK 24 [facility] complet ed anthrax vaccine DoD influenza virus [...] virus vaccine DoD anthrax vaccine 7 2006 [id number] 24 [facility] ([facility]) complet ed anthrax vaccine DoD hepatitis B vaccine, adult dosage 4 2006 [id number] 43 [facility] hepatitis B vaccine, adult dosage DoD hepatitis A vaccine, adult dosage 2 2005 [id number] 52 Unknown (UNK) complet ed hepatitis A vaccine, adult dosage DoD influenza virus vaccine, live, attenuated, for intranasal use 1 2005 [id number] 111 Unknown (UNK) comple t ed influenza virus vaccine, live, attenuate d, for intranasa l use DoD influenza virus vaccine, split virus (incl. purified surface antigen)-reti red CODE 1 2004 [id number] 15 Ch[employer]illa (AB) complet ed influenza virus vaccine, split virus (incl. purified surface antigen)- retired CODE DoD anthrax vaccine 6 2004 [id number] 24 [facility] ([facility]) complet ed anthrax vaccine DoD hepatitis A [...] 2 Lf of diphtheria toxoid) 1 2004 [id number] 09 Unknown (UNK) comple t ed tetanus and diphtheri a toxoids, adsorbed, preservat mary free, for adult use (2 Lf of tetanus toxoid and 2 Lf of diphtheri a toxoid) DoD poliovirus vaccine, inactivated 1 2004 [id number] 10 Unknown (UNK) comple t ed polioviru s vaccine, inactivat ed DoD influenza virus vaccine, split virus (incl. purified surface antigen)-reti red CODE 1 2004 [id number] 15 Unknown (UNK) comple t ed influenza virus vaccine, split virus (incl. purified surface antigen)- retired CODE DoD meningococcal polysaccharid e vaccine (MPSV4) 1 2004 [id number] 32 Unknown (UNK) comple t ed meningoco ccal polysacch aride vaccine (MPSV4) DoD typhoid Vi capsular polysaccharid e vaccine 1 2004 [id number] 101 Unknown (UNK) comple t ed typhoid Vi capsular polysacch aride vaccine DoD hepatitis B vaccine, adult dosage 3 2003 [id number] 43 Unknown (UNK) comple t ed hepatitis B vaccine, adult dosage DoD anthrax vaccine 5 2003 [id number] 24 [employer] [place] ([facility]) complet ed anthrax vaccine DoD yellow fever vaccine 1 2003 [id number] 37 Unknown (UNK) comple t ed yellow fever vaccine DoD hepatitis B vaccine, adult dosage 2 2003 [id number] 43 Merck (MSD) complet ed hepatitis B vaccine, adult dosage DoD influenza virus vaccine, split virus (incl. purified surface antigen)-reti red CODE 1 2002 [id number] 15 Vishnu (BRITTANY) complet ed influenza virus vaccine, split virus (incl. purified surface antigen)- retired CODE DoD anthrax vaccine 4 2002 [id number] 24 [employer] [place] ([facility]) complet ed anthrax vaccine DoD anthrax vaccine 3 2002 [id number] 24 Unknown (UNK) comple t ed anthrax vaccine DoD anthrax vaccine 2 2002 [id number] 24 [employer] ([facility]) complet ed anthrax vaccine DoD anthrax vaccine 1 2002 [id number] 24 [employer] [place] ([facility]) complet ed anthrax vaccine DoD hepatitis B vaccine, adult dosage 1 2002 [id number] 43 Merck (MSD) complet ed hepatitis B vaccine, adult dosage DoD typhoid Vi capsular polysaccharid e vaccine 0 2002 [id number] 101 Sanofi Pasteur (PMC) complet ed typhoid Vi capsular polysacch aride vaccine DoD vaccinia (smallpox) vaccine 0 2002 [id number] 75 Maria Ines (WAL) complet ed vaccinia (smallpox ) vaccine [...] from Department of Veterans Affairs facilities going backup to the last 18 months, not all VA inpatient encounters are included; 2) Encounters from the Department of Defense facilities going backup to 280 months. Location Location Details Encounter Type Encounter Number Reason For Visit Attending Provider ADM Date DC Date Status Disposition Source [facility]UR[facility]) OUTPATIENT [id number] LEW CADENA 06/13 Released w/o Limitations Shanda Cheema MilagroGURPREET nguyen([facility] ) [place] [facility], [place](Medica [place] Examin[place] on) OUTPATIENT [id number] [facility]LY [facility] ANAIS VEGAELVIRA Carmen 09/20 Released w/o Limitations [place] [facility], [facility] [place](Med[place] Examina tion) Theater Facility OUTPATIENT [id number] 05/03 Released w/o Limitations Theater Facilit y [place] [facility], [employer] [place] [place](Primar y Care [facility]) OUTPATIENT [id number] DONN NINO 06/29 Released w/o Limitations [place] [facility], [employer] [place]Prim trace[place] [facility]) [place] [facility], [employer] [place]Urolog [place]) OUTPATIENT [id number] MALE INFERTI LITY (CX and REFUSED EARLIER APPTS) JOSE C DAVIS 08/08 Released w/o Limitations [place] [facility], [employer] [place]) [facility] [place] [facility] [facility]) OUTPATIENT [id number] LABS F/U KHADIJAH CHILEL V 08/11 Released w/o Limitations [facility] [employer] [place] [place] [facility] [facility] [employer] [place] [facility] TELE CONSULT [id number] Notes Entered by: KHADIJAH CHILEL V 15 Aug 2011 0952 ------- ------- ------- ------- -- Called patient with elevate d K+ level of 6.0. KHADIJAH CHILEL V 08/15 [facility] [employer] [place] [facility] [facility] [employer] [place] OUTPATIENT [id number] f/u labs JOSE C DAVIS 11/15 Released w/o Limitations [facility], [employer] [place] [facility] [employer] [place] OUTPATIENT [id number] H-1 asy loss, masking ARIELLE PERRY 12/12 Released w/o Limitations [facility], [employer] [place] ) [facility] [employer] [place]) [place]PAT[place] [id number] to see JOSE C Coley 12/14 Released w/o Limitations [facility], [employer] [place] [facility] [employer] [place] [facility] OUTPATIENT [id number] mri results 4 bct DIONTE SEQUEIRA 12/26 Released w/o Limitations [facility], [employer] [place] [facility]) [facility] [place]) OUTPATIENT [id number] TIMMY FALLON 09/27 Released w/o Limitations [facility] [place]) [facility]ty [facility] [place]) OUTPATIENT [id number] Janes TIMMY STOVER Shun 03/27 Released w/o Limitations [facility] [place]) [facility] [place] S01A Team A) OUTPATIENT [id number] VALENTINA MASSEY 12/09 Released w/o Limitations [facility] [place] S01A Team A) [facility] [place] [facility]) OUTPATIENT [id number] Notes Entered by: Jenna CARRERO 09 Dec 2013 1148 ------- ------- ------- ------- -- annual hearing screeni BLUE Hogan 12/09 Released w/o Limitations [facility] [place] [facility] ) [facility]al [facility] [place] S01B Team B) OUTPATIENT [id number] PATITO Holder 03/26 Released w/o Limitations [facility] [place] S01B Team B) [facility] [place] M02D Team 2) OUTPATIENT [id number] [facility] (outsid e pcm - recruit er) ELAINE TYLER 06/29 Released w/o Limitations [facility] [place] M02D Team 2) [place]([facility] F02B South) TELE CONSULT [id number] Notes Entered by: JAYLON GANT 28 Oct 2019 1014 ------- ------- ------- ------- -- Month Medicat ion Review YARELI REDDING 10/27 [place]([facility] F02B South) [facility] [place] [address]([facility]) OUTPATIENT [id number] 0 [facility] 10/13 Released w/o Limitations ERICA J [facility] [place] [address]([facility]) Procedures Combined list of: 1) Procedures from Department of Veterans Affairs facilities going back up to thelast 18 months, not all VA non-surgical procedures are included; 2) All procedures from the Department of Defense facilities. Procedure Procedure Type Code Date Perfomer Comments Sourc e SKIN TEST; TUBERCULOSIS, INTRADERMAL 002 DoD ENVIRONMENTAL INTERVENTION FOR MEDICAL MGMT PURPOSES ON A PSYCHIATRIC PATIENT'S BEHALF WITH AGENCIES, EMPLOYERS, OR INSTITUTIONS 002 DoD SUPPLY OF SPECTACLES, EXCEPT PROSTHESIS FOR APHAKIA AND LOW VISION AIDS 002 DoD MEASLES AND RUBELLA VIRUS VACCINE, LIVE, FOR SUBCUTANEOUS USE 002 [facility] AUDIOMETRIC TESTING OF GROUPS 014 DoD COLLECTION OF VENOUS BLOOD BY VENIPUNCTURE DoD IMMUNIZATION ADMINISTRATION (INCLUDES PERCUTANEOUS, INTRADERMAL, SUBCUTANEOUS, OR INTRAMUSCULAR INJECTIONS); 1 VACCINE (SINGLE OR COMBINATION VACCINE/TOXOID) DoD SUPP &MATERIAL (EXCEPT SPECTACLE),PROVID,THE PHYS/OTH QUALIFIED HEALTH WOOD PROCESSING WORKER OVER &ABOVE THOSE USUALLY INCLD W THE OFFICE VISIT/OTH SER RENDERED (LIST DRUG,TRAYS,SUPP,OR MATERIAL PROVID) [facility] SELF-CARE/HOME MANAGMENT TRAIN (EG,ACT OF DAILY LIVING (ADL) &COMPENSAT TRAIN,MEAL PREPARATION,SAFETY PROCS,AND INSTRUCT IN USE OF ASST TECHNOLOGY DEV/ADPT EQUIP) DIR ONE-ON-ONE CONT,EA 15 MINUTES DoD INFLUENZA VIRUS VACCINE, TRIVALENT, LIVE (LAIV3), FOR INTRANASAL USE DoD COLLECTION OF VENOUS BLOOD BY VENIPUNCTURE DoD SCREENING TEST OF VISUAL ACUITY, QUANTITATIVE, BILATERAL DoD INTERACTIVE GROUP PSYCHOTHERAPY DoD SUPP &MATERIAL (EXCEPT SPECTACLE),PROVID,THE PHYS/OTH QUALIFIED HEALTH WOOD PROCESSING WORKER OVER &ABOVE THOSE USUALLY INCLD W THE OFFICE VISIT/OTH SER RENDERED (LIST DRUG,TRAYS,SUPP,OR MATERIAL PROVID) DoD ANTHRAX VACCINE, FOR SUBCUTANEOUS OR INTRAMUSCULAR USE 09/12/2 005 DoD HANDLING AND/OR CONVEYANCE OF SPECIMEN FOR TRANSFER FROM THE OFFICE TO A LABORATORY [facility] UNLISTED OPHTHALMOLOGICAL SERVICE OR PROCEDURE DoD SUPP &MATERIAL (EXCEPT SPECTACLE),PROVID,THE PHYS/OTH QUALIFIED HEALTH WOOD PROCESSING WORKER OVER &ABOVE THOSE USUALLY INCLD W THE OFFICE VISIT/OTH SER RENDERED (LIST DRUG,TRAYS,SUPP,OR MATERIAL PROVID) [facility] EDUCATIONAL SUPPLIES, SUCH BOOKS, TAPES, AND PAMPHLETS, FOR THE PATIENT'S EDUCATION AT COST TO PHYSICIAN OR OTHER QUALIFIED HEALTH WOOD PROCESSING WORKER DoD PHYS/OTH QUALIFIED HEALTH WOOD PROCESSING WORKER QUALIFIED,EDUCATION,ADELINA N,LICENSURE/REGULATION (WHEN APPLICABLE) EDUC SER RENDERED TO PATS IN A GRP SETTING (EG,,OBESITY,OR DIABETIC INSTRUCT) 004 [facility] PURE TONE AUDIOMETRY (THRESHOLD); AIR ONLY DoD SKIN TEST; TUBERCULOSIS, INTRADERMAL [facility] PHYS/OTH QUALIFIED HEALTH WOOD PROCESSING WORKER QUALIFIED,EDUCATION,ADELINA N,LICENSURE/REGULATION (WHEN APPLICABLE) EDUC SER RENDERED TO PATS IN A GRP SETTING (EG,,OBESITY,OR DIABETIC INSTRUCT) 004 DoD EDUCATIONAL SUPPLIES, SUCH BOOKS, TAPES, AND PAMPHLETS, FOR THE PATIENT'S EDUCATION AT COST TO PHYSICIAN OR OTHER QUALIFIED HEALTH WOOD PROCESSING WORKER 003 [facility] EAR PROTECTOR ATTENUATION MEASUREMENTS 012 [facility] BEHAVIORAL HEALTH COUNSELING AND THERAPY, PER 15 MINUTES 011 [facility] ALCOHOL AND/OR DRUG ASSESSMENT [facility] INDIVIDUAL PSYCHOTHERAPY, INSIGHT ORIENTED, BEHAVIOR MODIFYING AND/OR SUPPORTIVE, IN AN OFFICE OR OUTPATIENT FACILITY, APPROXIMATELY 20 TO 30 MINUTES [id number] WITH THE PATIENT 011 DoD SKIN TEST; TUBERCULOSIS, INTRADERMAL 011 DoD HEALTH&BEHAV ASSESSMENT (EG, HEALTH-FOC CLINICAL INTERVIEW, BEHAVIORAL OBSERVATIONS, PSYCHOPHYSICOLOGICAL MONITOR, HEALTH-ORIENT QUESTIONNAIRES), EA 15 MIN [id number] W THE PATIENT; INIT ASSESSMENT [facility] TETANUS, DIPHTHERIA TOXOIDS AND ACELLULAR PERTUSSIS VACCINE (TDAP), WHEN ADMINISTERED TO INDIVIDUALS 7 YEARS OR OLDER, FOR INTRAMUSCULAR USE 010 [facility] TYPHOID VACCINE, CAPSULAR POLYSACCHARIDE (VICPS), FOR INTRAMUSCULAR USE 010 [facility] HEALTH&BEHAV ASSESSMENT (EG, HEALTH-FOC CLINICAL INTERVIEW, BEHAVIORAL OBSERVATIONS, PSYCHOPHYSICOLOGICAL MONITOR, HEALTH-ORIENT QUESTIONNAIRES), EA 15 MIN [id number] W THE PATIENT; INIT ASSESSMENT 009 [facility] SKIN TEST; TUBERCULOSIS, INTRADERMAL [facility] SKIN TEST; TUBERCULOSIS, INTRADERMAL 009 [facility] ANTHRAX VACCINE, FOR SUBCUTANEOUS OR INTRAMUSCULAR USE 008 [facility] POSTOPERATIVE FOLLOW-UP VISIT, NORMALLY INCLUDED IN THE SURGICAL PACKAGE, INDICATE THAT EVALUATION & MANAGEMENT SERVICE WAS PERFORMED DURING A POSTOPERATIVE PERIOD REASON RELATED ORIGINAL PROCEDURE 007 [facility] POSTOPERATIVE FOLLOW-UP VISIT, NORMALLY INCLUDED IN THE SURGICAL PACKAGE, INDICATE THAT EVALUATION & MANAGEMENT SERVICE WAS PERFORMED DURING A POSTOPERATIVE PERIOD REASON RELATED ORIGINAL PROCEDURE [facility] TYPHOID VACCINE, ACETONE-KILLED, DRIED (AKD), FOR SUBCUTANEOUS USE (U.S. ) 007 [facility] POSTOPERATIVE FOLLOW-UP VISIT, NORMALLY INCLUDED IN THE SURGICAL PACKAGE, INDICATE THAT EVALUATION & MANAGEMENT SERVICE WAS PERFORMED DURING A POSTOPERATIVE PERIOD REASON RELATED ORIGINAL PROCEDURE 007 DoD POSTOPERATIVE FOLLOW-UP VISIT, NORMALLY INCLUDED IN THE SURGICAL PACKAGE, INDICATE THAT EVALUATION & MANAGEMENT SERVICE WAS PERFORMED DURING A POSTOPERATIVE PERIOD REASON RELATED ORIGINAL PROCEDURE 007 [facility] UNLISTED PROCEDURE, ANTERIOR SEGMENT OF EYE [facility] PHOTOREFRACTIVE KERATECTOMY (PRK) 007 [facility] UNLISTED OPHTHALMOLOGICAL SERVICE OR PROCEDURE [facility] OPHTHALMIC ULTRASOUND, ECHOGRAPHY, DIAGNOSTIC; CORNEAL PACHYMETRY, UNILATERAL OR BILATERAL (DETERMINATION OF CORNEAL THICKNESS) [facility] VARICELLA VIRUS VACCINE (RENEA), LIVE, FOR SUBCUTANEOUS USE [facility] Audiometry Group Testing Audiometry Grou p Testing [id number] 014 BLUE SERRA [facility] Venipuncture Venipuncture 13894 TIMMY STOVER [facility] Immunization Administration One Vaccine Immunization Administration One Vaccine 74967 013 [facility] Vaccines Viral Measles, Mumps and Rubella, Live Vaccines Viral Measles, Mumps and Rubella, Live 30337 [facility] A e ment & Intervention Blood Pre ure Measured [facility] Screening Test Of Visual Acuity, Quantitative, Bilateral Screening Test Of Visual Acuity, Quantitative, Bilateral [phone] [facility] Ear Protector Attenuation Measurements Ear Protector Attenuation Measurements [id number] 012 [facility] Acoustic Immittance Test Acoustic Immittance Test 08460 012 [facility] Comprehensive Audiometry Comprehensive Audiometry [phone] [facility] Behavioral health counseling and therapy, per 15 minutes 011 WALESKA SAMSON [facility] Alcohol and/or drug a e ment 011 WALESKA SAMSON [facility] Psychiatric Therapy Individual Approximately 20-30 Minutes Psychiatric Therapy Individual Approximately 20-30 Minutes [id number] [phone] TIEN COBURN [facility] Health And Behav A e mt Each 15 Min Initial A e ment Health And Behav Assessmt Each 15 Min Initial Assessment [phone] AJITH AARON [facility] Health And Behav A e mt Each 15 Min Initial A e ment Health And Behav Assessmt Each 15 Min Initial Assessment [id number] DURALL-ESQUILI DMITRI Carmen [facility] Threshold Audiogram (Pure Tone) Threshold Audiogram (Pure Tone) 55173 006 LEW CADENA [facility] Ear Protector Attenuation Measurements Ear Protector Attenuation Measurements 97475 006 LEW CADENA Training And Self-Care Skills Training And Self-Care Skills 57299 006 LEW CADENA [facility] Psychiatric Therapy Group (Interactive) Psychiatric Therapy Group (Interactive) [phone] CARLIE SANCHEZ [facility] Brief communication technology-based service, e.g. virtual check-in, by a physician or other qualified health care profskinny hansen who can report evaluation and management services, provided to an established patient, not originating from a related E/M service provided within the previous 7 days nor leading to an E/M service or procedure within the next 24 hours or soonest available appointment; 5-10 minutes of medical discu ion VE_KATE DEL TORO [facility] Social History Combined list of available smoking, tobacco, and other social history from Department of Defense and Veterans Affairs facilities. Social History Type Response Date Comment Sour e This section is an empty social history section. [facility]D
== END 2024-12-27 15:00 | disposition home or self-care (01) ==
LOC: HO.HMCC 13:11
PROVIDERS: PCP Internal Medicine; Visit Provider Internal Medicine
DX: R21 Rash and other nonspecific skin eruption (principal); R79.89 Other specified abnormal findings of blood chemistry; Z83.3 Family history of diabetes mellitus

== ENCOUNTER → 2024-12-27 13:09 | Outpatient (BNVA) | payer OTHER, SELFPAY | PROVIDERS: PCP Internal Medicine; Visit Provider Internal Medicine | DX: R21 Rash and other nonspecific skin eruption (principal); R79.89 Other specified abnormal findings of blood chemistry; Z83.3 Family history of diabetes mellitus | CPT/HCPCS: 96127; 99212 ==

== ENCOUNTER 2025-01-01 14:47 | Outpatient (AMB) | payer OTHER, SELFPAY ==
[2025-01-01 14:51] VITALS: BP 130/86; PULSE 83; O2SAT 95; BMI 29.9
--- NOTE | 2025-01-01 14:51 | A.OFFPC_ITS ---
Vital Signs 01/01/25 14:51 Height 6 ft Weight 220 lb 8 oz BMI 29.9 BP 130/86 Blood Pressure Location Rt brachial Position Sitting Pulse 83 Pulse Source Pulse Oximeter Pulse Oximetry (%) 95 Oxygen Delivery Method Room Air Intake Visit Reasons: Paperwork f/u Allergies No Known Allergies Allergy (Verified 01/01/25 14:52) Medication List - Last Reconciled 01/01/25 by Tony Duarte MD clotrimazole-betamethasone 1-0.05 % 1 appl topical ONCE 30 days sildenafil (Viagra) 100 mg PO DAILY 30 days tadalafil (Cialis) 5 mg PO DAILY 90 days Tobacco use date assessed: 01/01/25 Dental Screening Dental Screen Date: 01/01/25 Did you have a dental visit in the last 12 months?: Yes Did you have a dental problem in the last 6 months where you did not have access to dental care?: No Was dental information given to patient?: Patient has dentist HPI Paperwork f/u HPI Details History - The patient is a 39-year-old male pres enting for clearance for his next work assignment. - The patient confirms that the necessar y parts of the clearance documentation have been filled out. 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 - The patient reports having no limitati ons or issues that would affect his ability to perform duty assignments. Patient Instructions - Ensure your clearance documentation is signed by your commander. - Continue to monitor for any potential limitations or health issues. - Report any new symptoms or problems to a healthcare provider promptly. Review of Systems - General: No fever no chills - Neurological: No headaches no dizziness - Ear nose throat: No sore throat no hearing difficulty no ear pain - Cardiovascular: No syncope, no chest pain, no palpitations - Gastrointestinal: No nausea vomiting or diarrhea - Endocrine: No polyuria polydipsia no heat intolerance - Genitourinary: No dysuria , no blood in urine Physical Exam - General: No acute distress - HEENT: No acute findings - Neck: Supple - Respiratory system: Able to talk in f ull sentences, no audible wheeze - Cardiovascular: S1-S2 regular in rate and rhythm - Gastrointestinal: No pain - Extremities: No new findings - HYDROSTATIC TESTER: Alert awake oriented x3 motor se nsory intact - Skin: Normal turgor PFSH Surgical History No pertinent past surgical history Social History Housing: Apartment Patient Tobacco Use Status: Never used Tobacco e-Cigarette/Vaping Use: Never Used service: Yes Current occupational status: employed Cognitive needs: No Hearing needs: No Vision needs: No Questionnaire Thrive Questionnaire Date Thrive assessed: 01/01/25 I am a: Patient What is your living situation today?: I have a steady place to live Within the past 12 months, did the food you bought not last and you didn't have the money to get more?: Never true Within the past 12 months, did you worry whether your food would run out before you got money to buy more?: Never true Do you have trouble paying for medicines?: No Do you have trouble getting transportation to medical appointments?: No Do you have trouble paying your heating and electricity bill?: No Do you have trouble taking care of your child, family member or friend?: No Do you have trouble with day-to-day activities such as bathing, preparing meals, shopping, managing finances, etc.?: No Are you currently unemployed and looking for a job?: No Are you interested in more education?: No Please select the resources that you would like help with: None Currently or been in a relationship where the following occur: No concerns reported THRIVE Score: 0 AUDIT C Alcohol Use Questionnaire (AUDIT-C) 1. How often do you have a drink containing alcohol?: Never 3. How often do you have six or more drinks on one occasion?: Never Total Score: 0 Score Reviewed/Action Taken: Yes DHARA-7 AMB Questionnaire DHARA-7 Date DHARA - 7 assessed: 01/01/25 Feeling nervous, anxious, or on edge: 0 = Not at all Not being able to stop or control worryin = Not at all Worrying too much about different things: 0 = Not at all Trouble relaxin = Not at all Being so restless that it is hard to sit still: 0 = Not at all Becoming easily annoyed or irritable: 0 = Not at all Feeling afraid as if something awful might happen: 0 = Not at all Total DHARA-7 score (0-4 normal; 5-9 mild; 10-14 moderate; 15-21 severe): 0 Source: Developed by Drs. Fabio Rosenbaum, Teresa Braswell, Jm Clifford and colleagues, with an educational rohith from [employer]. DHARA-7 Assessment Billing DHARA-7 Assessment Tool: DHARA-7 Assessment 15962 Physical exam (Primary Care) Vital Signs: Last Vital Signs Pulse 83 01/01/25 14:51 BP 130/86 01/01/25 14:51 Pulse Ox 95 01/01/25 14:51 Oxygen Delivery Method Room Air 01/01/25 14:51 BMI result Body Mass Index 29.9 Tobacco/Smoking Status: Tobacco use Status Tobacco use date assessed 01/01/25 01/01/25 14:56 Patient Tobacco Use Status Never used Tobacco 01/01/25 14:51 e-Cigarette/Vaping Use Never Used 01/01/25 14:51 Thrive Assessment: Date of Thrive Assessment Date Thrive assessed 01/01/25 01/01/25 14:56 Currently or been in a relationship where the following occur: No concerns reported Coding Level of Care Code Est Pt Level 3 (57392) Diagnoses Change of job Z56.1 Encounter for fitness for duty examination Z02.89 Additional Codes DHARA-7 Assessment Billing - DHARA-7 Assessment Tool: DHARA-7 Assessment 78082 ([id number]) Assessment & Plan Assessment & Plan (1) Change of job: Code(s): Z56.1 - Change of job Category: Social Hx (2) Encounter for fitness for duty examination: Code(s): Z02.89 - Encounter for other administrative examinations Category: Medical Plan History - The patient is a 39-year-old male presenting for clearance for his next work a ssignment. - The patient confirms that the necessary parts of the clearance documentation have been filled out. 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 - The patient reports having no limitations or issues that would affect his ability to perform duty assignments. Patient Instructions - Ensure your clearance documentation is signed by your commander. - Continue to monitor for any potential limitations or health issues. - Report any new symptoms or problems to a healthcare provider promptly.
--- OUTSIDE RECORDS SUMMARY | 2025-01-01 15:55 | XMS_ITS | Continuity of Care Document ---
Author Name [facility] Organization [facility] Care Team Providers Care Media Marketing Specialist Name Role Phone [facility] Unavailable Unavailable Problems Combined list of problems from Department of Defense and Veterans Affairs facilities. It does not include entries that were removed or entered in error. Problem Status Onset Date Problem Type Date of Resolution Comments Source visit for: multiphasic screening exam Inactive Condition [facility] visit for: administrative purpose Inactive Condition [facility] Vaccines Prophylactic Need Against Viral Diseases Inactive Condition [facility] Patient Education Active Condition DoD SENSORINEURAL HEARING LOSS Active Condition [facility] MALE ERECTILE DISORDER Active Condition [facility] Laboratory Studies Inactive Condition [facility] visit for: screening exam Inactive Condition [facility] VARICOCELE SCROTAL Active Condition [facility] 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 Condition [facility] MALE INFERTILITY Active Condition [facility] Patient Education - Drug Abstinence Active Condition [facility] ASSESSMENT OF PATIENT CONDITION WORK-RELATED Active Condition [facility] NO PSYCHIATRIC DIAGNOSIS OR CONDITION ON AXIS I Inactive Condition [facility] CUBITAL TUNNEL SYNDROME LEFT Inactive Condition [facility] PSYCHIATRIC DIAGNOSIS OR CONDITION DEFERRED ON AXIS I Active Condition [facility] Patient Counseling: Inactive Condition D oD visit for: occupational health / fitness exam Active Condition [facility] visit for: services physical Active Condition [facility] Patient Counseling: Inquiry & Counseling Active Condition [facility] Medications Combined list of outpatient medications [...] EDINSON, 14 g AER W/ADAP Cancele d [id number] : 2023 0 Pharmac y Data Transac tion Service Facilit y Allergies, Adverse Reactions, Alerts Combined list of allergies from Department of Defense and Veterans Affairs facilities. It does not include entries that were removed or entered in error. Substance Category Reaction Severity Reaction type Status Date Reported Comments Source No Known Allergies Drug allergy (disorder) active 03/26/2015 [facility] [place] Immunizations Combined list of available immunizations from the Department of Defense and Veterans Affairs facilities. Immunization Series Date Given Administered By Site Reaction Lot Number CVX Code Drug Rougher Helper Status Comments Source influenza, recombinant, quadrivalent, injectable, [...] mumps and rubella virus vaccine 1 2012 [id number] [facility] ([facility]) complet ed measles, mumps and rubella virus vaccine DoD Influenza, seasonal, injectable, preservative free 0 2011 140 Sanofi Pasteur (PMC) complet ed Influenza , seasonal, injectabl e, preservat mary free DoD Influenza, seasonal, injectable 1 2011 [id number] 141 Other (OTH) complet ed Influenza , seasonal, injectabl e DoD influenza virus vaccine, live, attenuated, for intranasal use 1 2010 [id number] [employer]. (MED) complet ed influenza virus vaccine, live, attenuate d, for intranasa l use DoD influenza virus vaccine, split virus (incl. purified surface antigen)-reti red CODE 1 2009 [id number] 15 Unknown (UNK) comple t ed influenza virus vaccine, split virus (incl. purified surface antigen)- retired CODE DoD anthrax vaccine 9 2009 [id number] [employer] [facility] ([facility]) complet ed anthrax vaccine DoD tetanus toxoid, reduced diphtheria toxoid, and acellular pertu is vaccine, adsorbed 1 2009 [id number] 115 SmithKline (SKB) complet ed tetanus toxoid, reduced diphtheri a toxoid, and acellular pertussis vaccine, adsorbed DoD typhoid Vi capsular polysaccharid e vaccine 1 2009 [id number] Sanofi Pasteur (PMC) complet ed typhoid Vi capsular polysacch aride vaccine DoD Novel influenza-H1N 1-09, injectable 1 2009 [id number] 127 Unknown (UNK) complet ed Novel influenza -[id number], injectabl e DoD influenza virus vaccine, live, attenuated, for intranasal use 1 2008 [id number] 111 Unknown (UNK) comple t ed influenza virus vaccine, live, attenuate d, for intranasa l use DoD influenza virus vaccine, split virus (incl. purified surface antigen)-reti red CODE 0 2007 [id number] 15 [employer] (SKB) complet ed influenza virus vaccine, split virus (incl. purified surface antigen)- retired CODE DoD anthrax vaccine 8 2007 [id number] 24 [facility] complet ed anthrax vaccine DoD influenza [...] virus vaccine DoD anthrax vaccine 7 2006 [id number] 24 [facility] ([facility]) complet ed anthrax vaccine DoD hepatitis B vaccine, adult dosage 4 2006 [id number] 43 [facility] (SKB) complet ed hepatitis B vaccine, adult dosage DoD hepatitis A vaccine, adult dosage 2 2005 [id number] 52 Unknown (UNK) complet ed hepatitis A vaccine, adult dosage DoD influenza virus vaccine, live, attenuated, for intranasal use 1 2005 [id number] 111 Unknown (UNK) comple t ed influenza virus vaccine, live, attenuate d, for intranasa l use DoD influenza virus vaccine, split virus (incl. purified surface antigen)-reti red CODE 1 2004 [id number] 15 Ch[employer]illa (AB) complet ed influenza virus vaccine, split virus (incl. purified surface antigen)- retired CODE DoD anthrax vaccine 6 2004 [id number] [facility] ([facility]) complet ed anthrax vaccine DoD hepatitis [...] 2 Lf of diphtheria toxoid) 1 2004 [id number] 09 Unknown (UNK) comple t ed tetanus and diphtheri a toxoids, adsorbed, preservat mary free, for adult use (2 Lf of tetanus toxoid and 2 Lf of diphtheri a toxoid) DoD poliovirus vaccine, inactivated 1 2004 [id number] 10 Unknown (UNK) comple t ed polioviru s vaccine, inactivat ed DoD influenza virus vaccine, split virus (incl. purified surface antigen)-reti red CODE 1 2004 [id number] 15 Unknown (UNK) comple t ed influenza virus vaccine, split virus (incl. purified surface antigen)- retired CODE DoD meningococcal polysaccharid e vaccine (MPSV4) 1 2004 [id number] 32 Unknown (UNK) comple t ed meningoco ccal polysacch aride vaccine (MPSV4) DoD typhoid Vi capsular polysaccharid e vaccine 1 2004 [id number] 101 Unknown (UNK) comple t ed typhoid Vi capsular polysacch aride vaccine DoD hepatitis B vaccine, adult dosage 3 2003 [id number] 43 Unknown (UNK) comple t ed hepatitis B vaccine, adult dosage DoD anthrax vaccine 5 2003 [id number] [employer] [place] ([facility]) complet ed anthrax vaccine DoD yellow fever vaccine 1 2003 [id number] 37 Unknown (UNK) comple t ed yellow fever vaccine DoD hepatitis B vaccine, adult dosage 2 2003 [id number] 43 Merck (MSD) complet ed hepatitis B vaccine, adult dosage DoD influenza virus vaccine, split virus (incl. purified surface antigen)-reti red CODE 1 2002 [id number] Vishnu (BRITTANY) complet ed influenza virus vaccine, split virus (incl. purified surface antigen)- retired CODE DoD anthrax vaccine 4 2002 [id number] 24 [employer] [place] ([facility]) complet ed anthrax vaccine DoD anthrax vaccine 3 2002 [id number] 24 Unknown (UNK) comple t ed anthrax vaccine DoD anthrax vaccine 2 2002 [id number] 24 [employer] ([facility]) complet ed anthrax vaccine DoD anthrax vaccine 1 2002 [id number] [employer] [place] ([facility]) complet ed anthrax vaccine DoD hepatitis B vaccine, adult dosage 1 2002 [id number] 43 Merck (MSD) complet ed hepatitis B vaccine, adult dosage DoD typhoid Vi capsular polysaccharid e vaccine 0 2002 [id number] 101 Sanofi Pasteur (PMC) complet ed typhoid Vi capsular polysacch aride vaccine DoD vaccinia (smallpox) vaccine 0 2002 [id number] 75 Maria Ines (WAL) complet ed vaccinia [...] Date DC Date Status Disposition Source GURPREET Holcomb([facility]) OUTPATIENT [id number] LEW CADENA 06/13 Released w/o Limitations Shanda Cheema MilagroGURPREET nguyen([facility] ) [place] [facility] WITH [facility], [place](Medica l Examin[place] on) OUTPATIENT [id number] [facility] A[facility] VEGAELVIRA Carmen 09/20 Released w/o Limitations [place] [facility] WITH [facility], [facility] [place](Med[place] Exam[place] tion) [facility] Facility OUTPATIENT [id number] 05/03 Released w/o Limitations Theater Facilit y [place] MERGED WITH [facility], [employer] [place](Primar y Care TMC 5) OUTPATIENT [id number] DONN NINO 06/29 Released w/o Limitations [place] MERG[facility] WITH [facility], [employer]Prim trace[place] Care [facility] 5) [place] MERGED WITH [facility], [employer](Urolog [place]) OUTPATIENT [id number] MALE INFERTI LITY (CX and REFUSED EARLIER APPTS) JOSE C DAVIS 08/08 Released w/o Limitations [place] [facility] WITH [facility], [employer]) [facility] [employer]) OUTPATIENT [id number] LABS F/U KHADIJAH CHILEL V 08/11 Released w/o Limitations [facility], [employer] [facility] [employer] TELE CONSULT [id number] Notes Entered by: KHADIJAH CHILEL V 15 Aug 2011 0952 ------- ------- ------- ------- -- Called patient with elevate d K+ level of 6.0. KHADIJAH CHILEL V 08/15 [facility] [employer]Prim [place] [facility]) [facility] [employer] OUTPATIENT [id number] f/u labs JOSE C DAVIS 11/15 Released w/o Limitations [facility], [employer] [facility] [employer] OUTPATIENT [id number] H-1 asy loss, masking ARIELLE PERRY 12/12 Released w/o Limitations [facility], [employer] ) [facility] [employer]) OUTPATIENT [id number] to see JOSE C Coley 12/14 Released w/o Limitations [facility], [employer] [facility] [employer] OUTPATIENT [id number] mri results 4 bct DIONTE SEQUEIRA 12/26 Released w/o Limitations [facility], [employer]Prim [place] [facility]) [facility] [place]([facility]) OUTPATIENT [id number] TIMMY FALLON 09/27 Released w/o Limitations [facility] [place]) [facility] [place]) OUTPATIENT [id number] Janes TIMMY STOVER Shun 03/27 Released w/o Limitations [facility] [place]) [facility] [place]([facility] S01A Team A) OUTPATIENT [id number] VALENTINA MASSEY 12/09 Released w/o Limitations [facility] [place] S[facility] Team A) [facility] [place] OUTPATIENT [id number] Notes Entered by: Jenna CARRERO 09 Dec 2013 1148 ------- ------- ------- ------- -- annual hearing screeni BLUE Hogan 12/09 Released w/o Limitations [facility] [place] ) [facility] [place] S01B Team B) OUTPATIENT [id number] PATITO Holder 03/26 Released w/o Limitations [facility] [place] S01[facility] Team B) [facility] [place] M02D Team 2) OUTPATIENT [id number] [facility] (outsid e pcm - recruit er) ELAINE TYLER 06/29 Released w/o Limitations [facility] [place] M02D Team 2) [place]([facility] F[facility]) TELE CONSULT [id number] Notes Entered by: JAYLON GANT 28 Oct 2019 1014 ------- ------- ------- ------- -- Month Medicat ion Review YARELI REDDING 10/27 [place]([facility]) [place] [address]([facility]) OUTPATIENT [id number] 0 [facility] 10/13 Released w/o Limitations ERICA J Carlos [place] [address]([facility]) Procedures Combined list of: [...] VIRUS VACCINE, LIVE, FOR SUBCUTANEOUS USE 002 [facility] AUDIOMETRIC TESTING OF GROUPS 014 DoD COLLECTION OF VENOUS BLOOD BY VENIPUNCTURE DoD IMMUNIZATION ADMINISTRATION (INCLUDES PERCUTANEOUS, INTRADERMAL, SUBCUTANEOUS, OR INTRAMUSCULAR INJECTIONS); 1 VACCINE (SINGLE OR COMBINATION VACCINE/TOXOID) DoD SUPP &MATERIAL (EXCEPT SPECTACLE),PROVID,THE PHYS/OTH QUALIFIED HEALTH ENGLISH TUTOR OVER &ABOVE THOSE USUALLY INCLD W THE OFFICE VISIT/OTH SER RENDERED (LIST DRUG,TRAYS,SUPP,OR MATERIAL PROVID) [facility] SELF-CARE/HOME MANAGMENT TRAIN (EG,ACT OF DAILY LIVING (ADL) &COMPENSAT TRAIN,MEAL PREPARATION,SAFETY PROCS,AND INSTRUCT IN USE OF ASST TECHNOLOGY DEV/ADPT EQUIP) DIR ONE-ON-ONE CONT,EA 15 MINUTES DoD INFLUENZA VIRUS VACCINE, TRIVALENT, LIVE (LAIV3), FOR INTRANASAL USE DoD COLLECTION OF VENOUS BLOOD BY VENIPUNCTURE DoD SCREENING TEST OF VISUAL ACUITY, QUANTITATIVE, BILATERAL DoD INTERACTIVE GROUP PSYCHOTHERAPY DoD SUPP &MATERIAL (EXCEPT SPECTACLE),PROVID,THE PHYS/OTH QUALIFIED HEALTH ENGLISH TUTOR OVER &ABOVE THOSE USUALLY INCLD W THE OFFICE VISIT/OTH SER RENDERED (LIST DRUG,TRAYS,SUPP,OR MATERIAL PROVID) DoD ANTHRAX VACCINE, FOR SUBCUTANEOUS OR INTRAMUSCULAR USE 09/12/2 005 DoD HANDLING AND/OR CONVEYANCE OF SPECIMEN FOR TRANSFER FROM THE OFFICE TO A LABORATORY [facility] UNLISTED OPHTHALMOLOGICAL SERVICE OR PROCEDURE DoD SUPP &MATERIAL (EXCEPT SPECTACLE),PROVID,THE PHYS/OTH QUALIFIED HEALTH ENGLISH TUTOR OVER &ABOVE THOSE USUALLY INCLD W THE OFFICE VISIT/OTH SER RENDERED (LIST DRUG,TRAYS,SUPP,OR MATERIAL PROVID) [facility] EDUCATIONAL SUPPLIES, SUCH BOOKS, TAPES, AND PAMPHLETS, FOR THE PATIENT'S EDUCATION AT COST TO PHYSICIAN OR OTHER QUALIFIED HEALTH ENGLISH TUTOR DoD PHYS/OTH QUALIFIED HEALTH ENGLISH TUTOR QUALIFIED,EDUCATION,ADELINA N,LICENSURE/REGULATION (WHEN APPLICABLE) EDUC SER RENDERED TO PATS IN A GRP SETTING (EG,,OBESITY,OR DIABETIC INSTRUCT) 004 [facility] PURE TONE AUDIOMETRY (THRESHOLD); AIR ONLY DoD SKIN TEST; TUBERCULOSIS, INTRADERMAL [facility] PHYS/OTH QUALIFIED HEALTH ENGLISH TUTOR QUALIFIED,EDUCATION,ADELINA N,LICENSURE/REGULATION (WHEN APPLICABLE) EDUC SER RENDERED TO PATS IN A GRP SETTING (EG,,OBESITY,OR DIABETIC INSTRUCT) 004 DoD EDUCATIONAL SUPPLIES, SUCH BOOKS, TAPES, AND PAMPHLETS, FOR THE PATIENT'S EDUCATION AT COST TO PHYSICIAN OR OTHER QUALIFIED HEALTH ENGLISH TUTOR 003 [facility] EAR PROTECTOR ATTENUATION MEASUREMENTS 012 [facility] BEHAVIORAL HEALTH COUNSELING AND THERAPY, PER 15 MINUTES 011 [facility] ALCOHOL AND/OR DRUG ASSESSMENT [facility] INDIVIDUAL PSYCHOTHERAPY, INSIGHT ORIENTED, BEHAVIOR MODIFYING AND/OR SUPPORTIVE, IN AN OFFICE OR OUTPATIENT FACILITY, APPROXIMATELY 20 TO 30 MINUTES [id number] WITH THE PATIENT 011 DoD SKIN TEST; TUBERCULOSIS, INTRADERMAL 011 DoD HEALTH&BEHAV ASSESSMENT (EG, HEALTH-FOC CLINICAL INTERVIEW, BEHAVIORAL OBSERVATIONS, PSYCHOPHYSICOLOGICAL MONITOR, HEALTH-ORIENT QUESTIONNAIRES), EA 15 MIN [id number] W THE PATIENT; INIT ASSESSMENT [facility] TETANUS, DIPHTHERIA TOXOIDS AND ACELLULAR PERTUSSIS VACCINE (TDAP), WHEN ADMINISTERED TO INDIVIDUALS 7 YEARS OR OLDER, FOR INTRAMUSCULAR USE 010 [facility] TYPHOID VACCINE, CAPSULAR POLYSACCHARIDE (VICPS), FOR INTRAMUSCULAR USE 010 [facility] HEALTH&BEHAV ASSESSMENT (EG, HEALTH-FOC CLINICAL INTERVIEW, BEHAVIORAL OBSERVATIONS, PSYCHOPHYSICOLOGICAL MONITOR, HEALTH-ORIENT QUESTIONNAIRES), EA 15 MIN [id number] W THE PATIENT; INIT ASSESSMENT 009 [facility] SKIN TEST; TUBERCULOSIS, INTRADERMAL [facility] SKIN TEST; TUBERCULOSIS, INTRADERMAL 009 [facility] ANTHRAX VACCINE, FOR SUBCUTANEOUS OR INTRAMUSCULAR USE 008 [facility] POSTOPERATIVE FOLLOW-UP VISIT, NORMALLY INCLUDED IN THE SURGICAL PACKAGE, INDICATE THAT EVALUATION & MANAGEMENT SERVICE WAS PERFORMED DURING A POSTOPERATIVE PERIOD REASON RELATED ORIGINAL PROCEDURE 007 [facility] POSTOPERATIVE FOLLOW-UP VISIT, NORMALLY INCLUDED IN THE SURGICAL PACKAGE, INDICATE THAT EVALUATION & MANAGEMENT SERVICE WAS PERFORMED DURING A POSTOPERATIVE PERIOD REASON RELATED ORIGINAL PROCEDURE [facility] TYPHOID VACCINE, ACETONE-KILLED, DRIED (AKD), FOR SUBCUTANEOUS USE (U.S. ) 007 [facility] POSTOPERATIVE FOLLOW-UP VISIT, NORMALLY INCLUDED IN THE SURGICAL PACKAGE, INDICATE THAT EVALUATION & MANAGEMENT SERVICE WAS PERFORMED DURING A POSTOPERATIVE PERIOD REASON RELATED ORIGINAL PROCEDURE 007 DoD POSTOPERATIVE FOLLOW-UP VISIT, NORMALLY INCLUDED IN THE SURGICAL PACKAGE, INDICATE THAT EVALUATION & MANAGEMENT SERVICE WAS PERFORMED DURING A POSTOPERATIVE PERIOD REASON RELATED ORIGINAL PROCEDURE 007 [facility] UNLISTED PROCEDURE, ANTERIOR SEGMENT OF EYE [facility] PHOTOREFRACTIVE KERATECTOMY (PRK) 007 [facility] UNLISTED OPHTHALMOLOGICAL SERVICE OR PROCEDURE [facility] OPHTHALMIC ULTRASOUND, ECHOGRAPHY, DIAGNOSTIC; CORNEAL PACHYMETRY, UNILATERAL OR BILATERAL (DETERMINATION OF CORNEAL THICKNESS) [facility] VARICELLA VIRUS VACCINE (RENEA), LIVE, FOR SUBCUTANEOUS USE [facility] Audiometry Group Testing Audiometry Grou p Testing [id number] BLUE SERRA [facility] Venipuncture Venipuncture 21697 TIMMY STOVER [facility] Immunization Administration One Vaccine Immunization Administration One Vaccine 95592 013 [facility] Vaccines Viral Measles, Mumps and Rubella, Live Vaccines Viral Measles, Mumps and Rubella, Live 58263 [facility] A e ment & Intervention Blood Pre ure Measured [facility] Screening Test Of Visual Acuity, Quantitative, Bilateral Screening Test Of Visual Acuity, Quantitative, Bilateral 12410 013 [facility] Ear Protector Attenuation Measurements Ear Protector Attenuation Measurements 83762 012 [facility] Acoustic Immittance Test Acoustic Immittance Test 59454 012 [facility] Comprehensive Audiometry Comprehensive Audiometry 05793 012 [facility] Behavioral health counseling and therapy, per 15 minutes 011 WALESKA SAMSON [facility] Alcohol and/or drug a e ment 011 WALESKA SAMSON [facility] Psychiatric Therapy Individual Approximately 20-30 Minutes Psychiatric Therapy Individual Approximately 20-30 Minutes [id number] 011 TIEN COBURN [facility] Health And Behav A e mt Each 15 Min Initial A e ment Health And Behav Assessmt Each 15 Min Initial Assessment [id number] 011 AJITH AARON [facility] Health And Behav A e mt Each 15 Min Initial A e ment Health And Behav Assessmt Each 15 Min Initial Assessment 52853 009 DURALL-ESQUILI DMITRI Carmen [facility] Threshold Audiogram (Pure Tone) Threshold Audiogram (Pure Tone) 00565 006 LEW CADENA [facility] Ear Protector Attenuation Measurements Ear Protector Attenuation Measurements 65825 006 LEW CADENA Training And Self-Care Skills Training And Self-Care Skills 44812 006 LEW CADENA [facility] Psychiatric Therapy Group (Interactive) Psychiatric Therapy Group (Interactive) 42824 005 CARLIE SANCHEZ [facility] Brief communication technology-based service, e.g. virtual [...] of medical discu ion VE_KATE DEL TORO [facility] Social History Combined list of available smoking, tobacco, and other social history from Department of Defense and Veterans Affairs facilities. Social History Type Response Date Comment Sour e This section is an empty social history section. [facility]
== END 2025-01-01 15:45 | disposition home or self-care (01) ==
LOC: HO.HMCC 14:48
PROVIDERS: PCP Internal Medicine; Visit Provider Internal Medicine
DX: Z56.1 Change of job (principal); Z02.89 Encounter for other administrative examinations

== ENCOUNTER → 2025-01-01 14:47 | Outpatient (BNVA) | payer OTHER, SELFPAY | PROVIDERS: PCP Internal Medicine; Visit Provider Internal Medicine | DX: Z02.89 Encounter for other administrative examinations (principal); Z56.1 Change of job | CPT/HCPCS: 96127; 99212 ==

== ENCOUNTER 2025-05-12 06:01 | Outpatient (REF) | payer OTHER, SELFPAY ==
[2025-05-12 13:59] LABS: Alanine Aminotransferase 32 U/L (0-40); Albumin Level 4.5 g/dL (3.5-5.0); Alkaline Phosphatase 70 U/L (39-117); Anion Gap 11 (12-20); Aspartate Amino Transferase 32 U/L (5-37); Blood Urea Nitrogen 14 mg/dL (9-16); Calcium 9.2 mg/dL (8.4-10.2); Carbon Dioxide 27 mmol/L (22-29); Chloride 107 mmol/L (96-108); Cholesterol 201 mg/dL (<200); Estimated Glomerular Filt Rate > 60; HDL Cholesterol 41 mg/dL (>40); Potassium 4.4 mmol/L (3.3-5.1); Sodium 141 mmol/L (135-145); Total Protein 7.2 g/dL (6.5-8.0); Triglycerides 170 mg/dL (<150)
== END 2025-05-12 06:02 | disposition home or self-care (01) ==
LOC: HO.HMGCLDS 06:01
PROVIDERS: PCP Internal Medicine; Visit Provider Internal Medicine
DX: R21 Rash and other nonspecific skin eruption (principal); R79.89 Other specified abnormal findings of blood chemistry; Z83.3 Family history of diabetes mellitus
CPT/HCPCS: 36415; 80053; 80061; 84443

== ENCOUNTER 2025-05-14 15:21 | Outpatient (AMB) | payer OTHER, SELFPAY ==
[2025-05-14 15:24] VITALS: BP 128/86; PULSE 81; O2SAT 97; BMI 28.9
--- NOTE | 2025-05-14 15:24 | MHC.PC.OV ---
Vital Signs 05/14/25 15:24 Height 6 ft Weight 213 lb BMI 28.9 BP 128/86 Blood Pressure Location Lt brachial Position Sitting Pulse 81 Pulse Source Pulse Oximeter Pulse Oximetry (%) 97 Intake Visit Reasons: Annual PE Allergies No Known Allergies Allergy (Verified 05/14/25 15:24) Medication List - Last Reconciled 05/14/25 by Tony Duarte MD clotrimazole-betamethasone 1-0.05 % 1 appl topical ONCE 30 days sildenafil (Viagra) 100 mg PO DAILY 30 days tadalafil (Cialis) 5 mg PO DAILY 90 days Tobacco use date assessed: 01/01/25 Dental Screening Dental Screen Date: 01/01/25 HPI Annual PE HPI Details Physical exam appointment The patient is a 39-year-old male presenting with a nondisplaced fracture of the middle phalanx of the left ring finger. Nondisplaced fracture of the middle phalanx of the left ring finger: - The fracture occurred on Monday while playing basketball. - It involves the middle phalanx of the left ring finger. - The patient was advised to minimize movement of the finger. - The patient has been referred to orthopedics for further evaluation. Initiate referral to [facility] orthopedic but they do not take his insurance, he already have a splint on Health Maintenance - Last set of labs were performed 2 days ago, with normal CBC, metabolic profile showing normal electrolytes, kidney function, glucose, and liver enzymes. - Flu vaccination status was checked; the patient has not yet received the vaccine. Employment - The patient is changing jobs soon and relocating to [place]. - He has a history of service, including deployments to [place] and [place]. Diagnostic results - Recent labs show: - Normal CBC, electrolytes, and liver enzymes - LDL cholesterol at 126 mg/dL - TSH at 2.45 Patient Instructions - Follow up with the [facility] specialist as scheduled. - Keep the left ring finger immobilized and avoid unnecessary movements. Review of Systems - General: No fever no chills - Neurological: No headaches no dizziness - Ear nose throat: No sore throat no hearing difficulty no ear pain - Cardiovascular: No syncope, no chest pain, no palpitations - Gastrointestinal: No nausea vomiting or diarrhea - Endocrine: No polyuria polydipsia no heat intolerance - Genitourinary: No dysuria - Skin: No new complaints Physical Exam General: Cooperative, healthy appearing, comfortable, no acute distress Orientation: Patient oriented x3 Limitations: None Head: Normal to inspection Ears: Within normal limit visually, no issues reported Nose: Normal external nose present Face and sinus: Normal facial exam Eyes: Appearance normal, extraocular movement intact pupils reactive Neck: Normal visual inspection and supple, no thyromegaly Respiratory: Normal respiratory effort and able to speak in complete sentences. Clear to auscultation, no stridor Cardiovascular: S1 and S2 RRR GI: Normal to inspection. Soft to palpation and nontender, no pain, nausea, vomiting, diarrhea, or constipation Skin: Turgor normal, no acute findings Neuro: Patient oriented x3, motor sensory intact, balance intact, tandem pass Extremities: Normal to inspection, nondisplaced fracture of the middle phalanx of the left ring finger, no swelling, splint is on neurovascular intact in hand [facility] Surgical History No pertinent past surgical history Social History Housing: Apartment Patient Tobacco Use Status: Never used Tobacco e-Cigarette/Vaping Use: Never Used service: Yes Current occupational status: employed Cognitive needs: No Hearing needs: No Vision needs: No Questionnaire PHQ-9 Over the last 2 weeks, how often have you been bothered by any of the following problems? 1. Little interest or pleasure in doing things: not at all 2. Feeling down, depressed, or hopeless: not at all 3. Trouble falling or staying asleep, or sleeping too much: not at all 4. Feeling tired or having little energy: not at all 5. Poor appetite or overeating: not at all 6. Feeling bad about yourself - or that you are a failure or have let yourself or your family down: not at all 7. Trouble concentrating on things, such as reading the newspaper or watching television: not at all 8. Moving or speaking so slowly that other people could have noticed. Or the opposite - being so fidgety or restless that you have been moving around a lot more than usual: not at all 9. Thoughts that you would be better off or of hurting yourself in some way: not at all Total score: 0 Depression Screening Interpretation: Negative Depression Screening Done: Yes 76923 - PHQ-9 Billing: Yes Source: Developed by Drs. Fabio Rosenbaum, Teresa Braswell, Jm Clifford and colleagues, with an educational rohith from [employer] Thrive Questionnaire Date Thrive assessed: 01/01/25 I am a: Patient What is your living situation today?: I have a steady place to live Within the past 12 months, did the food you bought not last and you didn't have the money to get more?: Never true Within the past 12 months, did you worry whether your food would run out before you got money to buy more?: Never true Do you have trouble paying for medicines?: No Do you have trouble getting transportation to medical appointments?: No Do you have trouble paying your heating and electricity bill?: No Do you have trouble taking care of your child, family member or friend?: No Do you have trouble with day-to-day activities such as bathing, preparing meals, shopping, managing finances, etc.?: No Are you currently unemployed and looking for a job?: No Are you interested in more education?: No Please select the resources that you would like help with: None Currently or been in a relationship where the following occur: No concerns reported THRIVE Score: 0 AUDIT C Alcohol Use Questionnaire (AUDIT-C) 1. How often do you have a drink containing alcohol?: Monthly or less 2. How many drinks containing alcohol do you have on a typical day when you are drinking?: 1 or 2 3. How often do you have six or more drinks on one occasion?: Never Total Score: 1 Score Reviewed/Action Taken: Yes DHARA-7 AMB Questionnaire DHARA-7 Date DHARA - 7 assessed: 01/01/25 Feeling nervous, anxious, or on edge: 0 = Not at all Not being able to stop or control worryin = Not at all Worrying too much about different things: 0 = Not at all Trouble relaxin = Not at all Being so restless that it is hard to sit still: 0 = Not at all Becoming easily annoyed or irritable: 0 = Not at all Feeling afraid as if something awful might happen: 0 = Not at all Total DHARA-7 score (0-4 normal; 5-9 mild; 10-14 moderate; 15-21 severe): 0 Source: Developed by Drs. Fabio Rosenbaum, Teresa Braswell, Jm Clifford and colleagues, with an educational rohith from [employer]. DHARA-7 Assessment Billing DHARA-7 Assessment Tool: DHARA-7 Assessment 60234 Physical exam (Primary Care) Vital Signs: Last Vital Signs Pulse 81 05/14/25 15:24 BP 128/86 05/14/25 15:24 Pulse Ox 97 05/14/25 15:24 BMI result Body Mass Index 28.9 Tobacco/Smoking Status: Tobacco use Status Tobacco use date assessed 01/01/25 05/14/25 15:25 Patient Tobacco Use Status Never used Tobacco 05/14/25 15:25 e-Cigarette/Vaping Use Never Used 05/14/25 15:25 PHQ-9: PHQ-9 Score PHQ-9: Total score 0 05/14/25 15:25 Depression Screening Interpretation: Negative Thrive Assessment: Date of Thrive Assessment Date Thrive assessed 01/01/25 05/14/25 15:25 Currently or been in a relationship where the following occur: No concerns reported Coding Level of Care Code Est Pt Level 3 (42573) Est Pt Prev Care 40-64y(78844) Diagnoses Encounter for general adult medical examination with abnormal findings Z00.01 Closed nondisplaced fracture of middle phalanx of left ring finger with routine healing, subsequent encounter S62.655D Encounter type: subsequent encounter Fracture type: closed Fracture alignment: nondisplaced Fracture healing: with routine healing Additional Codes PHQ-9 - 62284 - PHQ-9 Billing: Yes ([id number]) DHARA-7 Assessment Billing - DHARA-7 Assessment Tool: DHARA-7 Assessment 94386 ([id number]) Assessment & Plan Assessment & Plan (1) Encounter for general adult medical examination with abnormal findings: Code(s): Z00.01 - Encounter for general adult medical examination with abnormal findings Category: Medical (2) Fracture of middle phalanx of left ring finger: Code(s): S62.625A - Displaced fracture of middle phalanx of left ring finger, initial encounter for closed fracture Category: Medical Qualifiers: Encounter type: subsequent encounter Fracture type: closed Fracture alignment: nondisplaced Fracture healing: with routine healing Qualified Code(s): S62.657D - Nondisplaced fracture of middle phalanx of left ring finger, subsequent encounter for fracture with routine healing Plan Physical exam appointment The patient is a 39-year-old male presenting with a nondisplaced fracture of the middle phalanx of the left ring finger. Nondisplaced fracture of the middle phalanx of the left ring finger: - The fracture occurred on Monday while playing basketball. - It involves the middle phalanx of the left ring finger. - The patient was advised to minimize movement of the finger. - The patient has been referred to orthopedics for further evaluation. Initiate referral to [facility] orthopedic but they do not take his insurance, he already have a splint on Health Maintenance - Last set of labs were performed 2 days ago, with normal CBC, metabolic profile showing normal electrolytes, kidney function, glucose, and liver enzymes. - Flu vaccination status was checked; the patient has not yet received the vaccine. Employment - The patient is changing jobs soon and relocating to [place]. - He has a history of service, including deployments to [place] and [place]. Diagnostic results - Recent labs show: - Normal CBC, electrolytes, and liver enzymes - LDL cholesterol at 126 mg/dL - TSH at 2.45 Patient Instructions - Follow up with the [facility] specialist as scheduled. - Keep the left ring finger immobilized and avoid unnecessary movements. Orders: Referrals Hand Surgery Referral S62.262A - Displaced fracture of middle phalanx of left ring finger, initial encounter for closed fracture
== END 2025-05-14 16:16 | disposition home or self-care (01) ==
LOC: HO.HMCC 15:22
PROVIDERS: PCP Internal Medicine; Visit Provider Internal Medicine
DX: Z00.01 Encounter for general adult medical examination with abnormal findings (principal); S62.655D Nondisplaced fracture of middle phalanx of left ring finger, subsequent encounter for fracture with routine healing

== ENCOUNTER → 2025-05-14 15:21 | Outpatient (BNVA) | payer OTHER, SELFPAY | PROVIDERS: PCP Internal Medicine; Visit Provider Internal Medicine | DX: Z00.01 Encounter for general adult medical examination with abnormal findings (principal); S62.655D Nondisplaced fracture of middle phalanx of left ring finger, subsequent encounter for fracture with routine healing | CPT/HCPCS: 96127; 99212 ==

== ENCOUNTER 2025-05-19 07:50 | Outpatient (REF) | payer OTHER, SELFPAY ==
--- NOTE | ~2025-05-19 | XR_ITS ---
CLINICAL HISTORY: M79.642 - Pain in left hand --- Additional Notes or Special Instructions: Attn RF 3 views left hand Comparison: None Findings: No fractures, subluxations or dislocations. No periostitis or bony destruction. Joint intervals are preserved. No marginal erosions or overhanging osteophytes. Ulnar styloid perserved. Normal bone mineralization and soft tissues. Carpal bones unremarkable.. No radiopaque foreign body. Impression: 1. No erosive disease This document has been electronically signed by: Andrey Gomez MD on 05/20/2025 12:47:48
== END 2025-05-19 07:51 | disposition home or self-care (01) ==
LOC: HO.HOSX 07:50
DX: S62.655D Nondisplaced fracture of middle phalanx of left ring finger, subsequent encounter for fracture with routine healing (principal); W21.05XD Struck by basketball, subsequent encounter
CPT/HCPCS: 73130; 99202

== ENCOUNTER 2025-05-19 10:28 | Outpatient (AMB) | payer OTHER, SELFPAY ==
--- NOTE | 2025-05-19 10:31 | MHC.OFFVIS ---
Vital Signs 05/19/25 10:32 Height 6 ft Weight 213 lb BMI 28.9 Handedness Left Intake Visit Reasons: FC [employer] -left ring finger fx Intake Note: Clifford is a 39 year old left hand dominant male, New Patient, who presents today for evaluation of a Displaced Fracture of the Left Ring Middle Phalanx, DOI: 05/09/25. Patient reports he was playing basketball, when he the ball hit the tip of the finger. Patient was evaluated at an Urgent Care the next day and was placed on a dorsal finger splint. Patient reports minimal pain today, however it is painful to bend. He continues wearing finger splint as instructed. He is not taking any pain medications at this time. He denies numbness or tingling. Denies previous injuries or surgeries to the left hand. Allergies No Known Allergies Allergy (Verified 05/19/25 10:32) HPI HPI FC [employer] -left ring finger fx: Details: Clifford is a 39 year old left hand dominant male, New Patient, who presents today for evaluation of a Displaced Fracture of the Left Ring Middle Phalanx, DOI: 05/09/25. Patient reports he was playing basketball, when he the ball hit the tip of the finger. Patient was evaluated at an Urgent Care the next day and was placed on a dorsal finger splint. Patient reports minimal pain today, however it is painful to bend. He continues wearing finger splint as instructed. He is not taking any pain medications at this time. He denies numbness or tingling. Denies previous injuries or surgeries to the left hand. 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 Neuro: Normal sensation of the tips of all digits of the left hand at this time Vascular: Cap refill brisk Pain: Minimal tenderness to palpation of the left ring finger, primarily at the base of the middle phalanx Discomfort with range of motion of the left ring finger ROM: With encouragement, patient is able to get close to making a closed fist with the left ring finger Skin: No lacerations or abrasions. General: No ecchymosis, erythema, or evidence of infection. Psych: Appears grossly normal Affect normal Attitude cooperative Office Procedures AMB Fracture Care Fracture Billing Code: Fracture Billing Code Results Reviewed Results Reviewed: X-rays obtained in the office today and independently reviewed by me, Richard Lucas PA-C, demonstrate Nondisplaced fracture of the base of the middle phalanx of the left ring finger. Assessment & Plan Assessment & Plan (1) Fracture of middle phalanx of left ring finger: Code(s): S62.625A - Displaced fracture of middle phalanx of left ring finger, initial encounter for closed fracture Category: Medical Qualifiers: Encounter type: subsequent encounter Fracture type: closed Fracture alignment: nondisplaced Fracture healing: with routine healing Qualified Code(s): S62.655D - Nondisplaced fracture of middle phalanx of left ring finger, subsequent encounter for fracture with routine healing Plan 1. Nondisplaced fracture of middle phalanx of the left ring finger date of injury 05/09/2025 patient appears to be recovering well from his injury Patient is educated about the typical recovery course No further splinting indicated at this time, patient may jennifer tape the middle and ring fingers of the left hand while awake to act as a moving splint 2 lb weight limit reinforced in the left hand patient may remove jennifer tape for bathing and while at rest patient understands this and is amenable to this plan follow-up in 2-3 weeks with myself or Dr. Merrill, sooner with any acute concerns Orders: Orders XR hand LT min 3V 05/19/25 M79.642 - Pain in left hand Coding Level of Care Code New Pt Level 3 (32780) Diagnoses Closed nondisplaced fracture of middle phalanx of left ring finger with routine healing, subsequent encounter S62.655D Encounter type: subsequent encounter Fracture type: closed Fracture alignment: nondisplaced Fracture healing: with routine healing CPT Codes Fracture Care - Fracture Billing Code: Fracture Billing Code ([id number])
[2025-05-19 10:32] VITALS: BMI 28.9
== END 2025-05-19 11:01 | disposition home or self-care (01) ==
LOC: HO.HOS 10:29
PROVIDERS: PCP Internal Medicine
DX: S62.655D Nondisplaced fracture of middle phalanx of left ring finger, subsequent encounter for fracture with routine healing (principal)
CPT/HCPCS: 99203

== ENCOUNTER → 2025-05-19 10:31 | Outpatient (BNV) | payer OTHER, SELFPAY | PROVIDERS: Visit Provider Radiology Diagnostic Radiology | DX: M79.642 Pain in left hand (principal) | CPT/HCPCS: 73130 ==

== ENCOUNTER 2025-06-04 09:06 | Outpatient (REF) | payer OTHER, SELFPAY ==
--- NOTE | ~2025-06-04 | XR_ITS ---
EXAMINATION: XR HAND 3 OR MORE VIEWS LEFT HISTORY: M79.642 - Pain in left hand COMPARISON: Comparison is made with the prior examination dated 05/19/2025. FINDINGS: Three views of the left hand are submitted. Osseous mineralization is normal. There is no fracture or dislocation. The joint spaces are preserved. The soft tissues are unremarkable. XR/XR hand LT min 3V IMPRESSION: Unremarkable examination of the left hand. Electronically signed by: Fabio Clark MD 06/04/2025 11:42 AM EDT
== END 2025-06-04 09:07 | disposition home or self-care (01) ==
LOC: HO.HOSX 09:06
PROVIDERS: Visit Provider Orthopaedic Surgery
DX: S62.655D Nondisplaced fracture of middle phalanx of left ring finger, subsequent encounter for fracture with routine healing (principal); X58.XXXD Exposure to other specified factors, subsequent encounter
CPT/HCPCS: 73130; 99212

== ENCOUNTER 2025-06-04 11:04 | Outpatient (AMB) | payer OTHER, SELFPAY ==
--- NOTE | 2025-06-04 11:29 | A.OFFVIS_ITS ---
Vital Signs 06/04/25 11:30 Height 6 ft Weight 213 lb BMI 28.9 Intake Visit Reasons: OV-left ring finger fx, DOI: 05/09/25 Intake Note: Clifford is a 39 year old left hand dominant male who presents today for follow up status post Displaced Fracture of the Left Ring Middle Phalanx, DOI: 05/09/25. He was last evaluated by MATILDA Gusman on 05/19/25. At that time he was a dvised no further splint was indicated but could jennifer tape his middle and ring fingers while awake to act as a moving splint. Patient was further advised to remain on a 2 lb weight limit. Today patient states he has been working on his ROM and has improved, he is having very little pain with over use at times. Denies numbness or tingling Allergies No Known Allergies Allergy (Verified 06/04/25 11:42) HPI HPI OV-left ring finger fx, DOI: 05/09/25: Details: Clifford is a 39 year old left hand dominant man who returns for a left ring finger fracture, from a Basketball injury, DOI: 05/09/25. this has been managed conservatively. He says he is doing well and denies any pain, except with some overuse. He denies any numbness or tingling. 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 Cognitive needs: No Hearing needs: No Vision needs: No Review of Systems Const All systems reviewed & are unremarkable except as noted in HPI and below Physical Exam Vital Signs: BMI result Body Mass Index 28.9 Const General: cooperative, healthy appearing and no acute distress Orientation/consciousness: patient oriented x3 HEENT Head: Yes normocephalic and Yes atraumatic Eyes EOM: EOMs intact bilaterally Resp Effort & Inspection: normal respiratory effort and able to speak in complete sentences Cardio Jugular venous distension: no JVD Skin General skin exam: turgor normal Rashes: no rashes Neuro General: patient oriented x3 Extrem Other: Evaluation of Left Upper Extremity: The patient is alert, oriented, and in no acute distress Neuro: Median, Ulnar, Radial nerves motor and sensory intact and sensation is normal to the tips of all digits Vascular: Cap refill brisk ROM: He can make a fist and extend all his digits Skin: No lacerations or abrasions. General: No Ecchymosis. No Erythema or evidence of infection. Radiographs: 3 views of the left hand were taken and viewed by me today in clinic. They show a ring finger middle phalanx volar base avulsion fracture with satisfactory fracture alignment and evidence of interval bony healing Psych Appearance: grossly normal Affect: normal affect Attitude: cooperative Assessment & Plan Assessment & Plan (1) Fracture of middle phalanx of left ring finger: Code(s): S62.625A - Displaced fracture of middle phalanx of left ring finger, initial encounter for closed fracture Category: Medical Qualifiers: Encounter type: subsequent encounter Fracture alignment: nondisplaced Fracture healing: with routine healing Fracture type: closed Qualified Code(s): S62.655D - Nondisplaced fracture of middle phalanx of left ring finger, subsequent encounter for fracture with routine healing Plan Assessment & Plan: 1. Left ring finger middle phalanx volar base fracture, From a Basketball injury, DOI: 05/09/25 This has been managed conservatively I educated him about this condition He will discontinue Jennifer-taping at this time I discussed activity modification, he will slowly increase his daily activity over the next few weeks, beginning with lightweight activities. He should avoid any ball sports or impact activities for the next 2 weeks. When he returns to playing Basketball, he will jennifer-tape his middle & ring fingers for 2 more weeks. No pull-up activities for the next 4-6 weeks. He will work on ROM exercises at home He can start attempting push-ups in 4 weeks, and pull-ups in 6 weeks. He works as a an Arm acquisitions specialist and has been working the last week. He was given a note for work to return on full duty, without restrictions. No testable push-up or pull-up activities for the next 3 months. He will follow up prn Scribed for Susie Merrill MD by Hector Bowers, medical driver, on 06/04/25 at 11:55 AM, EST. Orders: Orders XR hand LT min 3V Today M79.642 - Pain in left hand Coding Level of Care Code Global (01724) Diagnoses Closed nondisplaced fracture of middle phalanx of left ring finger with routine healing, subsequent encounter S62.655D Encounter type: subsequent encounter Fracture alignment: nondisplaced Fracture healing: with routine healing Fracture type: closed
[2025-06-04 11:30] VITALS: BMI 28.9
== END 2025-06-04 13:34 | disposition home or self-care (01) ==
LOC: HO.HOS 11:05
PROVIDERS: PCP Internal Medicine; Visit Provider Orthopaedic Surgery
DX: S62.655D Nondisplaced fracture of middle phalanx of left ring finger, subsequent encounter for fracture with routine healing (principal)
CPT/HCPCS: 99213

== ENCOUNTER → 2025-06-04 11:23 | Outpatient (BNV) | payer OTHER, SELFPAY | PROVIDERS: Visit Provider Radiology Diagnostic Radiology | DX: M79.642 Pain in left hand (principal) | CPT/HCPCS: 73130 ==